=== PATIENT | female | born 1945 | race Two or more races ===

== ENCOUNTER 2021-08-19 10:37 | Inpatient (IN) | payer MEDICARE, MEDICAID ==
[~2021-08-19] VITALS: Ht 152.4 cm; Wt 103.0 kg
[2021-08-19] MEDS ORDERED: SODIUM CHLORIDE 0.9% 500 ML IVB ONE (10:45)
[2021-08-19 12:14] LABS: Basophils # (auto) 0 10 ^3/uL (0-0.2); Basophils % (auto) 0.3 % (0.0-2.0); Eosinophils # (auto) 0.3 10 ^3/uL (0-0.8); Hemoglobin 14.2 g/dL (12.2-16.2); Monocytes # (auto) 0.7 10 ^3/uL (0-1.3); White Blood Cell 11.8 10^3/uL (4.4-10.8)
[2021-08-19 12:15] LABS: Eosinophils % (auto) 2.4 % (0.0-7.0); Hematocrit 44.2 % (36.0-46.0); Lymphocytes # (auto) 3.7 10 ^3/uL (0.4-5.4); Lymphocytes % (auto) 30.9 % (10.0-50.0); Mean Corpuscular Hgb Conc. 32.2 g/dL (32.0-36.0); Mean Corpuscular Volume 80.8 fL (80.0-100.0); Monocytes % (auto) 5.9 % (0.0-12.0); Neutrophils # (auto) 7.2 10 ^3/uL (1.6-8.6); Neutrophils % (auto) 60.5 % (37.0-80.0); Nucleated Red Blood Cells % 0.1 %; Red Blood Cells 5.48 10^6/uL (4.0-5.20); Red Cell Distribution Width 15.4 % (11.8-14.3)
[2021-08-19 12:31] LABS: Albumin 2.6 g/dL (3.4-5.0); Calcium 9.4 mg/dL (8.5-10.1)
[2021-08-19 12:34] LABS: Total Protein 6.5 g/dL (6.4-8.2)
[2021-08-19] MEDS ORDERED: NITROGLYCERIN 0.4 MG SL TAB SL PRN (14:00)
[2021-08-19] MEDS ORDERED: cefTRIAXone 1GM/50ML D5W 50 ML IV ONE (14:00)
[2021-08-19] MEDS ORDERED: MORPHINE SULFATE INJECTION 2 MG/ML SYRG IV PRN ×2 (14:00→16:30)
[2021-08-19 14:35] LABS: Urine Bacteria MOD /hpf (None Seen); Urine Blood 2+ /uL (Negative); Urine Mucus FEW (None Seen); Urine Specific Gravity 1.017 (1.001-1.035); Urine WBC 2872 /hpf (0 - 5); Urine WBC Clumps PRESENT /hpf (None Seen)
[2021-08-19] MEDS ORDERED: HYDROcodone-ACET 5/325MG TAB PO ONE (16:30)
[2021-08-19] MEDS ORDERED: HYDROcodone-ACET 5/325MG TAB PO PRN (16:30)
[2021-08-19] MEDS ORDERED: DEXTROSE (50%) 50ML SYRG IV PRN (16:30)
[2021-08-19] MEDS ORDERED: FAMOTIDINE (10MG/ML) 2ML VL IV ONE (16:30)
[2021-08-19] MEDS ORDERED: DOCUSATE SOD 100 MG CAP PO PRN (16:30)
[2021-08-19] MEDS ORDERED: hydrALAZINE HCL 20 MG/ML VL IV PRN (16:30)
[2021-08-19] MEDS ORDERED: ONDANSETRON HCL 4 MG/2 ML VIAL IV PRN (16:30)
[2021-08-19] MEDS ORDERED: IPRATROPIUM BROM 0.5 MG/2.5ML INH SOL NEB ONE (16:30)
[2021-08-19] MEDS ORDERED: LORazepam 0.5 MG TAB PO PRN (16:30)
[2021-08-19] MEDS ORDERED: LACTULOSE 20Gm/30ML SOLN PO PRN (16:30)
[2021-08-19 17:38] LABS: Magnesium 1.7 mg/dL (1.6-2.6)
[2021-08-19 17:40] LABS: Phosphorus 3.6 mg/dL (2.5-4.90)
[2021-08-19] MEDS: ACCU-CHEK COMFORT CURVE STRIP VI SCH ×2 (17:58→22:03)
[2021-08-19] MEDS: InsuLIN REG 1unit/0.01ml Soln (100units/ml) SC SCH ×2 (17:59→22:00)
[2021-08-19 18:58] LABS: INR 1.05 (0.9-1.15); Partial Thromboplastin Time 28.5 sec (23.6-33.0)
[2021-08-19] MEDS: POTASSIUM CHL 20 Meq TABLET PO SCH (22:00)
[2021-08-19] MEDS: ATORVASTATIN 20 MG TAB PO SCH (22:02)
[2021-08-19] MEDS: QUEtiapine FUMARATE 25 MG TAB PO SCH (22:03)
[2021-08-20] MEDS: IPRATROPIUM BROM 0.5 MG/2.5ML INH SOL NEB SCH ×6 (06:00→22:00)
[2021-08-20] MEDS: FUROSEMIDE 20 MG/2 ML VIAL IV SCH ×2 (06:20→18:11)
[2021-08-20] MEDS: ACCU-CHEK COMFORT CURVE STRIP VI SCH ×4 (06:50→22:00)
[2021-08-20] MEDS: InsuLIN REG 1unit/0.01ml Soln (100units/ml) SC SCH ×4 (06:52→22:00)
[2021-08-20 08:13] LABS: Basophils # (auto) 0.1 10 ^3/uL (0-0.2); Basophils % (auto) 0.9 % (0.0-2.0); Eosinophils # (auto) 0.4 10 ^3/uL (0-0.8); Eosinophils % (auto) 3.5 % (0.0-7.0); Hematocrit 47.3 % (36.0-46.0); Hemoglobin 14.8 g/dL (12.2-16.2); Lymphocytes # (auto) 3.2 10 ^3/uL (0.4-5.4); Lymphocytes % (auto) 28.2 % (10.0-50.0); Mean Corpuscular Hemoglobin 25.7 pg (28.0-32.0); Mean Corpuscular Hgb Conc. 31.3 g/dL (32.0-36.0); Mean Corpuscular Volume 82.1 fL (80.0-100.0); Monocytes # (auto) 0.7 10 ^3/uL (0-1.3); Neutrophils % (auto) 61.4 % (37.0-80.0); Nucleated Red Blood Cells % 0.2 %; Red Blood Cells 5.77 10^6/uL (4.0-5.20); Red Cell Distribution Width 16.2 % (11.8-14.3); White Blood Cell 11.4 10^3/uL (4.4-10.8)
[2021-08-20 08:22] LABS: Calcium 10.2 mg/dL (8.5-10.1); Magnesium 1.9 mg/dL (1.6-2.6); Potassium 4.1 mmol/L (3.5-5.1)
[2021-08-20 08:27] LABS: INR 1.06 (0.9-1.15); Partial Thromboplastin Time 28.6 sec (23.6-33.0)
[2021-08-20 08:31] LABS: CRP High Sensitivity 4.01 mg/dL (< 0.3); Phosphorus 3.1 mg/dL (2.5-4.90)
[2021-08-20 08:45] LABS: Bilirubin, Total 0.9 mg/dL (0.2-1.0); Total Protein 7.2 g/dL (6.4-8.2)
[2021-08-20] MEDS ORDERED: cefTRIAXone 1GM/50ML D5W 50 ML IV SCH (09:00)
[2021-08-20] MEDS: levoFLOXacin 500MG 100 ML IV SCH (09:32)
[2021-08-20] MEDS: FLUoxetine HCL 20 MG CAP PO SCH (09:33)
[2021-08-20] MEDS: BENAZEPRIL HCL 10 MG TAB PO SCH (09:33)
[2021-08-20] MEDS ORDERED: METOPROLOL SUCCINATE XL 50 MG TAB PO SCH (10:00)
[2021-08-20] MEDS ORDERED: FAMOTIDINE (10MG/ML) 2ML VL IV SCH (10:00)
[2021-08-20] MEDS ORDERED: ENOXAPARIN SOD 40 MG/0.4 ML SYRINGE SC SCH (10:00)
[2021-08-20] MEDS ORDERED: CLOPIDOGREL BISULFATE 75 MG TAB PO SCH (10:00)
[2021-08-20] MEDS: POTASSIUM CHL 20 Meq TABLET PO SCH ×2 (10:00→22:00)
[2021-08-20] MEDS: HYDROcodone-ACET 5/325MG TAB PO PRN (10:59)
[2021-08-20 11:11] VITALS: BP 144/84
[2021-08-20 11:12] LABS: Alcohol, Urine < 3.0 mg/dL (0-10); Amphetamine Screen, Urine NEGATIVE (NEGATIVE); Barbiturate Scree,Urine NEGATIVE (NEGATIVE); Benzodiazephine Screen, Urine NEGATIVE (NEGATIVE); Cannabinoid Screen, Urine POSITIVE (NEGATIVE); Cocaine Screen, Urine NEGATIVE (NEGATIVE); Opiate Scree,Urine POSITIVE (NEGATIVE); Phencyclidine Screen, Urine NEGATIVE (NEGATIVE)
[2021-08-20 12:45] LABS: BUN/Creatinine Ratio 14.5
[2021-08-20] MEDS: LORazepam 2MG/ML-1ML VIAL IV PRN ×2 (14:11→18:19)
[2021-08-20] MEDS ORDERED: MORP1SOL9 PO (15:03)
[2021-08-20] MEDS ORDERED: GLIP5TAB12 PO (15:03)
[2021-08-20] MEDS ORDERED: BISA10SU45 PR (15:03)
[2021-08-20] MEDS ORDERED: LORA0.5T20 PO (15:03)
[2021-08-20] MEDS ORDERED: ENOXAPARIN SOD 60 MG/0.6 ML SYRINGE SC ONE (16:45)
[2021-08-20] MEDS: QUEtiapine FUMARATE 25 MG TAB PO SCH (22:00)
[2021-08-20] MEDS: ATORVASTATIN 20 MG TAB PO SCH (22:00)
[2021-08-20] MEDS: CARVEDILOL 12.5 MG TAB PO SCH (22:00)
[2021-08-20] MEDS ORDERED: ENOXAPARIN SOD 150 MG/1 ML SYRINGE SC SCH (22:00)
[2021-08-21] MEDS: IPRATROPIUM BROM 0.5 MG/2.5ML INH SOL NEB SCH ×6 (02:00→22:00)
[2021-08-21] MEDS: LORazepam 2MG/ML-1ML VIAL IV PRN ×2 (02:47→08:04)
[2021-08-21] MEDS: ENOXAPARIN SOD 100 MG/1 ML SYRINGE SC SCH ×2 (06:00→17:38)
[2021-08-21] MEDS: FUROSEMIDE 20 MG/2 ML VIAL IV SCH ×2 (06:02→17:50)
[2021-08-21] MEDS: InsuLIN REG 1unit/0.01ml Soln (100units/ml) SC SCH ×4 (07:40→22:11)
[2021-08-21] MEDS: ACCU-CHEK COMFORT CURVE STRIP VI SCH ×4 (07:40→22:01)
[2021-08-21 08:08] LABS: Folate (Folic Acid) 18.06 ng/mL (5.38-24)
[2021-08-21] MEDS: levoFLOXacin 500MG 100 ML IV SCH (09:34)
[2021-08-21] MEDS: BENAZEPRIL HCL 10 MG TAB PO SCH (09:34)
[2021-08-21] MEDS: FLUoxetine HCL 20 MG CAP PO SCH (09:34)
[2021-08-21] MEDS: CARVEDILOL 12.5 MG TAB PO SCH ×2 (09:34→21:59)
[2021-08-21] MEDS: POTASSIUM CHL 20 Meq TABLET PO SCH ×2 (09:34→22:00)
[2021-08-21] MEDS ORDERED: FLUO60TA7 PO (11:34)
[2021-08-21 11:39] VITALS: BP 103/71
[2021-08-21] MEDS: HYDROcodone-ACET 5/325MG TAB PO PRN (19:53)
[2021-08-21 21:00] VITALS: BP 100/58
[2021-08-21] MEDS: QUEtiapine FUMARATE 25 MG TAB PO SCH (22:00)
[2021-08-21] MEDS: ATORVASTATIN 20 MG TAB PO SCH (22:00)
[2021-08-22] MEDS: IPRATROPIUM BROM 0.5 MG/2.5ML INH SOL NEB SCH ×5 (01:58→13:54)
[2021-08-22 05:00] VITALS: BP 112/64
[2021-08-22] MEDS: ENOXAPARIN SOD 100 MG/1 ML SYRINGE SC SCH ×2 (05:29→17:00)
[2021-08-22] MEDS: FUROSEMIDE 20 MG/2 ML VIAL IV SCH ×2 (05:29→17:23)
[2021-08-22] MEDS: ACCU-CHEK COMFORT CURVE STRIP VI SCH ×3 (06:12→16:58)
[2021-08-22] MEDS: InsuLIN REG 1unit/0.01ml Soln (100units/ml) SC SCH ×3 (06:16→17:17)
[2021-08-22 09:00] VITALS: BP 92/47
[2021-08-22] MEDS: CARVEDILOL 12.5 MG TAB PO SCH (10:00)
[2021-08-22] MEDS: BENAZEPRIL HCL 10 MG TAB PO SCH (10:00)
[2021-08-22] MEDS: FLUoxetine HCL 20 MG CAP PO SCH (10:00)
[2021-08-22] MEDS: POTASSIUM CHL 20 Meq TABLET PO SCH (10:00)
[2021-08-22] MEDS: levoFLOXacin 500MG 100 ML IV SCH (10:00)
[2021-08-22 13:00] VITALS: BP 121/75
[2021-08-22] MEDS ORDERED: SUCCINYLCHOLINE CHLORIDE 20 MG/ML 10ML VIAL IV ONE (13:40)
[2021-08-22 17:00] VITALS: BP 121/54
== END 2021-08-22 17:50 | disposition hospice, home (50) | DRG 463 ==
LOC: EDBD 10:37 → ER 10:37 → OVERFLOW 13:53 → CENTRAL 08-21 10:54
PROVIDERS: ADMIT Hospitalist; ATTEND Internal Medicine Pulmonary Disease
DX: N30.00 Acute cystitis without hematuria (principal); G93.41 Metabolic encephalopathy; I50.21 Acute systolic (congestive) heart failure; I82.411 Acute embolism and thrombosis of right femoral vein; I82.431 Acute embolism and thrombosis of right popliteal vein; I11.0 Hypertensive heart disease with heart failure; F03.90 Unspecified dementia, unspecified severity, without behavioral disturbance, psychotic disturbance, mood disturbance, and anxiety; E11.65 Type 2 diabetes mellitus with hyperglycemia; R62.7 Adult failure to thrive; J44.9 Chronic obstructive pulmonary disease, unspecified; I25.10 Atherosclerotic heart disease of native coronary artery without angina pectoris; Z20.822 Contact with and (suspected) exposure to COVID-19; E66.01 Morbid (severe) obesity due to excess calories; E78.5 Hyperlipidemia, unspecified; F12.90 Cannabis use, unspecified, uncomplicated; I44.7 Left bundle-branch block, unspecified; I50.82 Biventricular heart failure; Z51.5 Encounter for palliative care; Z68.41 Body mass index [BMI] 40.0-44.9, adult; I25.2 Old myocardial infarction; Z79.4 Long term (current) use of insulin; Z82.49 Family history of ischemic heart disease and other diseases of the circulatory system; Z86.73 Personal history of transient ischemic attack (TIA), and cerebral infarction without residual deficits; Z83.3 Family history of diabetes mellitus; Z85.09 Personal history of malignant neoplasm of other digestive organs; Z85.42 Personal history of malignant neoplasm of other parts of uterus; Z87.440 Personal history of urinary (tract) infections; Z90.49 Acquired absence of other specified parts of digestive tract; Z90.710 Acquired absence of both cervix and uterus; Z88.6 Allergy status to analgesic agent
CPT/HCPCS: 36415; 70450; 71045; 74176; 80053; 80061; 80307; 81001; 82150; 82607; 82728; 82746; 82962; 83036; 83605; 83615; 83690; 83735; 83880; 84100; 84443; 84484; 85025; 85379; 85610; 85652; 85730; 86141; 87040; 87086; 87088; 87186; 87426; 93005; 93306; 93970; 94640; 95819; 96361; 96365; 96375; G0378; J0330; J0696; J1815; J1956; J3490

== ENCOUNTER 2024-01-19 22:54 | Inpatient (IN) | payer MEDICARE, MEDICAID ==
[~2024-01-19] VITALS: Ht 154.9 cm; Wt 92.5 kg
[~2024-01-19 22:54] MED LIST: BISA10SU45 PR; FLUO60TA7 PO; GLIP5TAB21 PO; LORA-1121 PO; MORP1SOL9 PO
[2024-01-19 23:39] LABS: Basophils # (auto) 0.1 10 ^3/uL (0-0.2); Basophils % (auto) 1.1 % (0.0-2.0); Eosinophils # (auto) 0.2 10 ^3/uL (0-0.8); Eosinophils % (auto) 1.9 % (0.0-7.0); Hematocrit 46.7 % (36.0-46.0); Hemoglobin 15.7 g/dL (12.2-16.2); Lymphocytes # (auto) 4.5 10 ^3/uL (0.4-5.4); Lymphocytes % (auto) 36.8 % (10.0-50.0); Mean Corpuscular Hemoglobin 28.4 pg (28.0-32.0); Mean Corpuscular Hgb Conc. 33.7 g/dL (32.0-36.0); Mean Corpuscular Volume 84.3 fL (80.0-100.0); Monocytes # (auto) 0.6 10 ^3/uL (0-1.3); Monocytes % (auto) 4.8 % (0.0-12.0); Neutrophils # (auto) 6.7 10 ^3/uL (1.6-8.6); Neutrophils % (auto) 55.4 % (37.0-80.0); Nucleated Red Blood Cells % 0.1 %; Red Blood Cells 5.54 10^6/uL (4.0-5.20); Red Cell Distribution Width 13.3 % (11.8-14.3); White Blood Cell 12.2 10^3/uL (4.4-10.8)
[2024-01-19 23:54] LABS: Partial Thromboplastin Time 28.5 SEC (24.5-34.5); Prothrombin Time 10.6 sec (9.3-11.8)
[2024-01-19 23:58] LABS: Alanine Aminotransferase 13 U/L (7-40); Albumin 3.7 g/dL (3.2-4.8); Alkaline Phosphatase 129 U/L (46-116); Anion Gap 6 (5-15); Aspartate Aminotransferase 11 U/L (13-40); BUN/Creatinine Ratio 13.3 (10.0-20.0); Blood Urea Nitrogen 11 mg/dL (9-23); Carbon Dioxide 25 mmol/L (20-30); Chloride 101 mmol/L (98-107); Glucose 386 mg/dL (74-106); Magnesium 1.5 mg/dL (1.6-2.6); Potassium 3.6 mmol/L (3.5-5.1); Sodium 132 mmol/L (136-145)
[2024-01-19 23:59] LABS: Bilirubin, Total 0.8 mg/dL (0.2-1.0); Total Protein 6.8 g/dL (5.7-8.2)
[2024-01-20] VITALS (10 sets, daily range): BP systolic 109–133; BP diastolic 51–71; PULSE 60–74; RESP 12–20; TEMP 97.7; O2SAT 91–98
[2024-01-20] MEDS: ASPirin-EC 325mg tab PO ONE (00:19)
[2024-01-20] MEDS: ENOXAPARIN SOD 150 MG/1 ML SYRINGE SC ONE (00:19)
[2024-01-20] MEDS: LORazepam 0.5 MG TAB PO ONE (01:27)
[2024-01-20 03:07] LABS: Urine Bacteria MANY /hpf (None Seen); Urine Blood 1+ /uL (Negative); Urine Clarity Ex.Turbid (Clear); Urine Color Light-Brown (Yellow); Urine Mucus FEW (None Seen); Urine Protein, UAD TRACE (Negative); Urine Specific Gravity 1.025 (1.001-1.035); Urine Urobilinogen Normal (Negative); Urine WBC 561 /hpf (0 - 5)
[2024-01-20] MEDS ORDERED: NITROGLYCERIN 0.4 MG SL TAB SL PRN (04:15)
[2024-01-20] MEDS ORDERED: DEXTROSE (50%) 50ML SYRG IV PRN (04:15)
[2024-01-20] MEDS ORDERED: ONDANSETRON HCL 4 MG/2 ML VIAL IV PRN (04:15)
[2024-01-20] MEDS ORDERED: MORPHINE SULFATE INJ 2 MG/ml SYRG IV PRN (04:15)
[2024-01-20] MEDS: MAGNESIUM SULFATE 1GM/100ML 100 ML IV SCH (05:08)
[2024-01-20] MEDS: PANTOPRAZOLE 40 MG TAB PO SCH (06:00)
[2024-01-20] MEDS: InsuLIN REG 1unit/0.01ml Soln (100units/ml) SC SCH (06:00)
[2024-01-20] MEDS: ACCU-CHEK COMFORT CURVE STRIP VI SCH (06:00)
[2024-01-20] MEDS: cefTRIAXone 1GM/50ML D5W 50 ML IV SCH (09:40)
[2024-01-20] MEDS: FLUoxetine HCL 20 MG CAP PO SCH (10:25)
[2024-01-20] MEDS: CLOPIDOGREL BISULFATE 75 MG TAB PO SCH (10:25)
[2024-01-20] MEDS: ENOXAPARIN SOD 40 MG/0.4 ML SYRINGE SC SCH (10:25)
[2024-01-20] MEDS: amLODIPine BESYLATE 5 MG TAB PO SCH (10:26)
[2024-01-20] MEDS: FUROSEMIDE 20 MG TAB PO SCH (10:27)
[2024-01-20] MEDS: CARVEDILOL 3.125 MG TAB PO SCH (10:27)
[2024-01-20] MEDS ORDERED: HEPARIN SODIUM (PORCINE) 5000 UNITS/ML 1ML VIAL IV ONE (11:15)
[2024-01-20] MEDS: HEPARIN DRIP/D5W 100UNITS/ML 250 ML IV SCH (12:55)
[2024-01-20 13:19] LABS: Basophils # (auto) 0.1 10 ^3/uL (0-0.2); Basophils % (auto) 0.6 % (0.0-2.0); Eosinophils # (auto) 0.1 10 ^3/uL (0-0.8); Eosinophils % (auto) 0.7 % (0.0-7.0); Hematocrit 50.1 % (36.0-46.0); Hemoglobin 16.6 g/dL (12.2-16.2); Lymphocytes # (auto) 3.6 10 ^3/uL (0.4-5.4); Lymphocytes % (auto) 26.9 % (10.0-50.0); Mean Corpuscular Hemoglobin 28.2 pg (28.0-32.0); Mean Corpuscular Hgb Conc. 33.2 g/dL (32.0-36.0); Monocytes # (auto) 0.7 10 ^3/uL (0-1.3); Monocytes % (auto) 5.1 % (0.0-12.0); Neutrophils % (auto) 66.7 % (37.0-80.0); Nucleated Red Blood Cells % 0.2 %; Red Blood Cells 5.89 10^6/uL (4.0-5.20); Red Cell Distribution Width 13.6 % (11.8-14.3); White Blood Cell 13.5 10^3/uL (4.4-10.8)
[2024-01-20 13:45] LABS: INR 1.05 (0.9-1.15); Prothrombin Time 11.1 sec (9.3-11.8)
[2024-01-20] MEDS: HEPARIN IN NS 1000Units/500mL 1,500 ML ONE (15:14)
[2024-01-20] MEDS: IODIXANOL 320MG/ML 100ML BTL IV ONE (15:15)
[2024-01-20] MEDS: VERAPAMIL 2.5MG/ML INJ 2ML VIAL IV ONE (15:35)
[2024-01-20] MEDS: MIDAZOLAM HCL 2MG/2ML 2ml VIAL (1mg/ml) ONE (15:36)
[2024-01-20] MEDS: ANGIOMAX 250 MG VIAL IV ONE (15:36)
[2024-01-20] MEDS: SODIUM CHL 0.9% 50 ML ONE (15:36)
[2024-01-20] MEDS: fentaNYL CITRATE 100 MCG/2 ML VL ONE (15:36)
[2024-01-20] MEDS: LIDOCAINE 2%HCL (LOCAL ANESTH.) INJ 20ML MDV ONE (15:58)
[2024-01-20] MEDS ORDERED: ATORVASTATIN 20 MG TAB PO SCH (22:00)
[2024-01-20] MEDS: ATORVASTATIN 20 MG TAB PO SCH (22:23)
[2024-01-21] VITALS (8 sets, daily range): BP systolic 105–131; BP diastolic 64–71; PULSE 57–67; RESP 17–22; TEMP 97.8–98.3; O2SAT 91–97
[2024-01-21 06:59] LABS: Basophils # (auto) 0.1 10 ^3/uL (0-0.2); Basophils % (auto) 0.8 % (0.0-2.0); Eosinophils # (auto) 0.2 10 ^3/uL (0-0.8); Eosinophils % (auto) 1.3 % (0.0-7.0); Hematocrit 43.2 % (36.0-46.0); Hemoglobin 14.5 g/dL (12.2-16.2); Lymphocytes # (auto) 4.1 10 ^3/uL (0.4-5.4); Lymphocytes % (auto) 33.6 % (10.0-50.0); Mean Corpuscular Hgb Conc. 33.5 g/dL (32.0-36.0); Mean Corpuscular Volume 83.7 fL (80.0-100.0); Monocytes # (auto) 0.8 10 ^3/uL (0-1.3); Monocytes % (auto) 6.3 % (0.0-12.0); Neutrophils # (auto) 7.1 10 ^3/uL (1.6-8.6); Nucleated Red Blood Cells % 0.2 %; Red Blood Cells 5.16 10^6/uL (4.0-5.20); Red Cell Distribution Width 13.6 % (11.8-14.3); White Blood Cell 12.2 10^3/uL (4.4-10.8)
[2024-01-21 07:15] LABS: Anion Gap 6 (5-15); Carbon Dioxide 26 mmol/L (20-30); Chloride 102 mmol/L (98-107); Potassium 3.8 mmol/L (3.5-5.1); Sodium 134 mmol/L (136-145)
[2024-01-21 07:16] LABS: Calcium 10.1 mg/dL (8.7-10.4)
[2024-01-21 07:21] LABS: BUN/Creatinine Ratio 19.4 (10.0-20.0); Blood Urea Nitrogen 13 mg/dL (9-23); Glucose 189 mg/dL (74-106)
[2024-01-21] MEDS ORDERED: ASPirin 81 mg TAB PO SCH (10:00)
[2024-01-21] MEDS ORDERED: AMLO1TAB23 PO (16:23)
[2024-01-21] MEDS ORDERED: MULT-1018 PO (16:23)
[2024-01-21] MEDS ORDERED: [UNRECOGNIZED DRUG - CODE] PO (16:23)
[2024-01-21] MEDS ORDERED: PANT40T PO (16:23)
[2024-01-21] MEDS ORDERED: CARV3.1240 PO (16:23)
[2024-01-21] MEDS ORDERED: TRAZ-227 PO (16:23)
[2024-01-21] MEDS ORDERED: CALC-606 PO (16:23)
[2024-01-21] MEDS ORDERED: SENN-231 PO (16:23)
[2024-01-21] MEDS ORDERED: ATOR20TA PO (16:23)
[2024-01-21] MEDS ORDERED: CLOP75TA70 PO (16:23)
[2024-01-21] MEDS ORDERED: FLUO-125 PO (16:27)
[2024-01-21] MEDS: MEROPENEM 1GM IVPB 50 ML IV ONE (18:28)
[2024-01-21] MEDS ORDERED: DEXTROSE (50%) 50ML SYRG IV PRN (20:15)
[2024-01-21] MEDS: ACCU-CHEK COMFORT CURVE STRIP VI SCH (22:36)
[2024-01-21] MEDS: INSULIN LANTUS (GLARGINE) 1 /0.01ml (100units/ml) SC SCH (22:40)
[2024-01-21] MEDS: MEROPENEM 1GM IVPB 50 ML IV SCH (23:08)
[2024-01-22] VITALS (8 sets, daily range): BP systolic 102–135; BP diastolic 54–81; PULSE 58–104; RESP 17–20; TEMP 97.4–98.8; O2SAT 93–98
[2024-01-22] MEDS: InsuLIN REG 1unit/0.01ml Soln (100units/ml) SC SCH (00:22)
[2024-01-22 06:15] LABS: Basophils # (auto) 0.1 10 ^3/uL (0-0.2); Basophils % (auto) 1.2 % (0.0-2.0); Eosinophils # (auto) 0.3 10 ^3/uL (0-0.8); Eosinophils % (auto) 2.5 % (0.0-7.0); Hematocrit 40.9 % (36.0-46.0); Hemoglobin 13.9 g/dL (12.2-16.2); Lymphocytes # (auto) 3.8 10 ^3/uL (0.4-5.4); Lymphocytes % (auto) 34.1 % (10.0-50.0); Mean Corpuscular Hemoglobin 28.2 pg (28.0-32.0); Mean Corpuscular Volume 82.9 fL (80.0-100.0); Monocytes # (auto) 0.9 10 ^3/uL (0-1.3); Monocytes % (auto) 7.6 % (0.0-12.0); Neutrophils # (auto) 6.1 10 ^3/uL (1.6-8.6); Neutrophils % (auto) 54.6 % (37.0-80.0); Nucleated Red Blood Cells % 0.3 %; Red Blood Cells 4.94 10^6/uL (4.0-5.20); Red Cell Distribution Width 13.8 % (11.8-14.3); White Blood Cell 11.2 10^3/uL (4.4-10.8)
[2024-01-22 06:38] LABS: Alanine Aminotransferase 31 U/L (7-40); Alkaline Phosphatase 142 U/L (46-116); Anion Gap 6 (5-15); BUN/Creatinine Ratio 27.5 (10.0-20.0); Blood Urea Nitrogen 19 mg/dL (9-23); Calcium 10.2 mg/dL (8.7-10.4); Carbon Dioxide 28 mmol/L (20-30); Chloride 102 mmol/L (98-107); Glucose 169 mg/dL (74-106); Potassium 3.7 mmol/L (3.5-5.1); Sodium 136 mmol/L (136-145)
[2024-01-22 06:39] LABS: Albumin 3.5 g/dL (3.2-4.8); Aspartate Aminotransferase 20 U/L (13-40); Bilirubin, Total 0.8 mg/dL (0.2-1.0); Total Protein 6.3 g/dL (5.7-8.2)
[2024-01-22] MEDS: INSULIN LANTUS (GLARGINE) 1 /0.01ml (100units/ml) SC SCH (15:47)
[2024-01-22] MEDS: DOCUSATE SOD 100 MG CAP PO SCH (21:47)
[2024-01-22] MEDS: ACETAMINOPHEN 325 MG TAB PO PRN (23:15)
[2024-01-23 01:00] VITALS: BP 103/64; PULSE 65; RESP 20; TEMP 97.5; O2SAT 97
[2024-01-23 05:00] VITALS: BP 104/64; PULSE 57; RESP 20; TEMP 97.4; O2SAT 95
[2024-01-23 06:14] LABS: Basophils # (auto) 0.1 10 ^3/uL (0-0.2); Basophils % (auto) 0.8 % (0.0-2.0); Eosinophils # (auto) 0.3 10 ^3/uL (0-0.8); Eosinophils % (auto) 2.3 % (0.0-7.0); Hematocrit 39.9 % (36.0-46.0); Hemoglobin 13.5 g/dL (12.2-16.2); Lymphocytes # (auto) 4.5 10 ^3/uL (0.4-5.4); Lymphocytes % (auto) 41.2 % (10.0-50.0); Mean Corpuscular Hemoglobin 28.4 pg (28.0-32.0); Mean Corpuscular Hgb Conc. 33.8 g/dL (32.0-36.0); Monocytes # (auto) 0.7 10 ^3/uL (0-1.3); Monocytes % (auto) 6.6 % (0.0-12.0); Neutrophils # (auto) 5.4 10 ^3/uL (1.6-8.6); Neutrophils % (auto) 49.1 % (37.0-80.0); Nucleated Red Blood Cells % 0.1 %; Red Blood Cells 4.75 10^6/uL (4.0-5.20); Red Cell Distribution Width 13.6 % (11.8-14.3)
[2024-01-23 06:20] LABS: Anion Gap 6 (5-15); Carbon Dioxide 29 mmol/L (20-30); Chloride 103 mmol/L (98-107); Potassium 3.5 mmol/L (3.5-5.1); Sodium 138 mmol/L (136-145)
[2024-01-23 06:22] LABS: Calcium 10.3 mg/dL (8.7-10.4)
[2024-01-23 06:26] LABS: Blood Urea Nitrogen 18 mg/dL (9-23); Glucose 191 mg/dL (74-106)
[2024-01-23 08:00] VITALS: PULSE 55
[2024-01-23] MEDS ORDERED: ATOR40TA52 PO (08:15)
[2024-01-23 09:00] VITALS: BP 116/67; PULSE 64; RESP 14; TEMP 98.9; O2SAT 98
[2024-01-23] MEDS: cefTRIAXone 1GM/50ML D5W 50 ML IV SCH (09:01)
[2024-01-23] MEDS: ENOXAPARIN SOD 40 MG/0.4 ML SYRINGE SC SCH (09:11)
[2024-01-23 13:00] VITALS: BP 105/55; PULSE 70; RESP 16; TEMP 97.9; O2SAT 98
== END 2024-01-23 16:09 | DRG 321 ==
LOC: ER 22:54 → EDBD 22:54 → TELE 01-20 04:19 → TELE-WESTW 01-20 17:50
PROVIDERS: ADMIT Internal Medicine Pulmonary Disease; ATTEND Anesthesiology
PROC: 027034Z Dilation of Coronary Artery, One Artery with Drug-eluting Intraluminal Device, Percutaneous Approach (ICD-10-PCS; principal; 2024-01-20)
PROC: B211YZZ Fluoroscopy of Multiple Coronary Arteries using Other Contrast (ICD-10-PCS; 2024-01-20)
PROC: 4A023N7 Measurement of Cardiac Sampling and Pressure, Left Heart, Percutaneous Approach (ICD-10-PCS; 2024-01-20)
DX: I21.4 Non-ST elevation (NSTEMI) myocardial infarction (principal); I50.43 Acute on chronic combined systolic (congestive) and diastolic (congestive) heart failure; N39.0 Urinary tract infection, site not specified; I25.10 Atherosclerotic heart disease of native coronary artery without angina pectoris; B96.20 Unspecified Escherichia coli [E. coli] as the cause of diseases classified elsewhere; J44.9 Chronic obstructive pulmonary disease, unspecified; I11.0 Hypertensive heart disease with heart failure; E66.01 Morbid (severe) obesity due to excess calories; I44.7 Left bundle-branch block, unspecified; E78.5 Hyperlipidemia, unspecified; E11.65 Type 2 diabetes mellitus with hyperglycemia; Z74.01 Bed confinement status; I25.2 Old myocardial infarction; Z79.82 Long term (current) use of aspirin; Z79.899 Other long term (current) drug therapy; Z90.49 Acquired absence of other specified parts of digestive tract; Z90.710 Acquired absence of both cervix and uterus; Z88.6 Allergy status to analgesic agent; Z68.38 Body mass index [BMI] 38.0-38.9, adult; Z86.73 Personal history of transient ischemic attack (TIA), and cerebral infarction without residual deficits
CPT/HCPCS: 36415; 47531; 80053; 83735; 83880; 84484; 85025; 85610; 85730; 92941; 93458; 96365; 96366; 96367; 96372; 99291; C7518; 80048; 81001; 82962; 83036; 85379; 87086; 87088; 87186; 93005; 93306; 97162; 99152; G0378; J1815; J2185; J2250; Q9967

== ENCOUNTER 2024-07-16 21:57 | Inpatient (IN) | payer MEDICARE, MEDICAID ==
[~2024-07-16] VITALS: Ht 167.6 cm; Wt 94.4 kg
[~2024-07-16 21:57] MED LIST changes: +AMLO1TAB23 PO; +ATOR40TA52 PO; +CALC-606 PO; +CARV3.1240 PO; +CLOP75TA70 PO; +FLUO-125 PO; -FLUO60TA7 PO; -GLIP5TAB21 PO; -LORA-1121 PO; -MORP1SOL9 PO; +MULT-1018 PO; +PANT40T PO; +SENN-231 PO; +TRAZ-227 PO; +[UNRECOGNIZED DRUG - CODE] PO
[2024-07-16 22:30] LABS: Basophils # (auto) 0.3 10 ^3/uL (0-0.2); Basophils % (auto) 1.1 % (0.0-2.0); Eosinophils # (auto) 0.1 10 ^3/uL (0-0.8); Eosinophils % (auto) 0.4 % (0.0-7.0); Hematocrit 45.1 % (36.0-46.0); Lymphocytes # (auto) 2.9 10 ^3/uL (0.4-5.4); Lymphocytes % (auto) 12.8 % (10.0-50.0); Mean Corpuscular Hemoglobin 27.7 pg (28.0-32.0); Mean Corpuscular Hgb Conc. 33.1 g/dL (32.0-36.0); Mean Corpuscular Volume 83.5 fL (80.0-100.0); Monocytes # (auto) 0.6 10 ^3/uL (0-1.3); Monocytes % (auto) 2.8 % (0.0-12.0); Neutrophils # (auto) 18.7 10 ^3/uL (1.6-8.6); Neutrophils % (auto) 82.9 % (37.0-80.0); Platelet Count (auto) 427 10^3/uL (140-450); Red Blood Cells 5.41 10^6/uL (4.0-5.20); Red Cell Distribution Width 14.4 % (11.8-14.3); White Blood Cell 22.5 10^3/uL (4.4-10.8)
[2024-07-16 22:44] LABS: Alanine Aminotransferase 13 U/L (7-40); Albumin 4.2 g/dL (3.2-4.8); Anion Gap 9 (5-15); Aspartate Aminotransferase 13 U/L (13-40); Bilirubin, Total 0.6 mg/dL (0.2-1.0); Carbon Dioxide 26 mmol/L (20-31); Chloride 103 mmol/L (98-107); Lipase 35 U/L (12-53); Sodium 138 mmol/L (136-145); Total Protein 7.9 g/dL (5.7-8.2)
[2024-07-16 22:48] LABS: Alkaline Phosphatase 147 U/L (46-116); Blood Urea Nitrogen 24 mg/dL (9-23); Glucose 240 mg/dL (74-106)
[2024-07-16 23:27] VITALS: PULSE 77; RESP 15; O2SAT 96
[2024-07-17] VITALS (7 sets, daily range): BP systolic 107–116; BP diastolic 43–60; PULSE 61–71; RESP 14–18; TEMP 97.8–98.6; O2SAT 93–98
[2024-07-17] MEDS: ONDANSETRON HCL 4 MG/2 ML VIAL IV ONE (00:33)
[2024-07-17] MEDS: HYDROMORPHONE HCL 1 MG/ML INJ IV ONE (00:36)
[2024-07-17] MEDS: IOHEXOL 300 MG/ML 100ML BOTTLE IJ ONE (00:37)
--- NOTE | 2024-07-17 01:30 | DVH ---
Exam: CT CT AB PEL WITH IV CON ONLY History: GI bleed COMPARISON: None Technique: Multidetector spiral CT of the abdomen and pelvis was performed from lung bases to pubic s ymphysis. Intravenous contrast was administered during this examination. Portal venous imaging was obtained. Axial, coronal and sagittal multiplanar reformats were performed by the technologist on a separate workstation. Radiation Dose : 1. Abdomen/Pelvis: CTDIvol 24 mGy, DLP 1432 mGy*cm. CONTRAST: Type of contrast: Isovue Contrast injected: 100 ml Findings: Lung Bases: No acute or significant lung base finding. Normal heart size. No pleural or pericardial effusion. Liver: The liver is normal in size. No focal lesions. Normal hepatic vascular enhancement. Gallbladder and Biliary Tree: Gallbladder is surgically absent. Spleen: Unremarkable Pancreas: The pancreas is normal in appearance without focal lesions or abnormal enhancement. Adrenal Glands: Unremarkable Kidneys: No hydronephrosis. 2 mm nonobstructing stone in the midpole of the right kidney. Bladder: Unremarkable Bowel: The stomach is grossly normal in appearance. Small bowel and colon are normal in caliber and d istribution. The appendix is not visualized; however, no secondary findings of acute appendicitis id entified. Ascites: Absent Lymphadenopathy: No mesenteric, retroperitoneal or periportal lymphadenopathy. Abdominal Wall and Mesentery: Unremarkable. Vasculature: The visualized abdominal aorta is normal in size and caliber. Abdominal and pelvic vess els demonstrate normal enhancement. Pelvic Organs: Unremarkable Musculoskeletal: No aggressive focal bony lesions, acute fractures or dislocation. IMPRESSION: 1. No acute abdominal or pelvic finding. Radiation optimization: All CT scans at this facility use at least one of these dose optimization dank hniques: automated exposure control mA and/or kV adjustment per patient size (includes targeted exam s where dose is matched to clinical indication) or iterative reconstruction.
[2024-07-17 02:12] LABS: Urine Bacteria None Seen /hpf (None Seen)
[2024-07-17 02:20] LABS: Urine Blood 2+ /uL (Negative); Urine Budding Yeast OCCASIONAL /hpf (None Seen); Urine Clarity Ex.Turbid (Clear); Urine Color Light-Brown (Yellow); Urine Protein, UAD 1+ (Negative); Urine Squamous Epithelial Cell FEW /hpf (<5); Urine Urobilinogen Normal (Negative); Urine WBC 1098 /hpf (0 - 5); Urine WBC Clumps PRESENT /hpf (None Seen)
--- NOTE | 2024-07-17 02:35 | ED.PDOC ---
GI ASSESSMENT HPI Comments This patient is a pleasant but morbidly obese 78-year-old female who arrives to the ED today from [facility] for evaluation of abdominal and back pain concerns for the past five days. Patient states that she has had belly pain that she believes his radiating towards her back. Patient has a history of dementia and memory loss. 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 Patient states intermittent nausea but no fever. Patient states she had had an event of coffee-ground emesis. Patient was mildly hypertensive and satting at 92% on room air at arrival. 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 Allergies: Coded Allergies: Aspirin (Verified Allergy, Mild, 08/19/21) Home Meds Active Scripts Atorvastatin Calcium (ATORVASTATIN CALCIUM) 40 Mg Tab, 1 TAB PO QPM, #90 TAB 3 Refills Prov:MILLA DELGADO MD 01/23/24 Reported Medications Fluoxetine Hcl (Fluoxetine Hcl) 20 Mg Cap, 1 TAB PO QAM 01/21/24 Sennosides-Docusate Sodium (Stimulant Laxative Plus S 8.6-50 mg) 1 Tab Tab, 2 TAB PO DAILY 01/21/24 Ferrous Sulfate (True Ferrous Sulfate) 324 Mg Tab, 1 TAB PO DAILY 01/21/24 Calcium Carbonate-Cholecalcife (Ultra Calcium + Vitamin D 600-10 mg-Mcg) 1 Tab Tab, 1 TAB PO DAILY 01/21/24 Multiple Vitamin (Multivitamins) Tab, 1 TAB PO DAILY 01/21/24 Clopidogrel Bisulfate (CLOPIDOGREL) 75 Mg Tab, 1 TAB PO DAILY 01/21/24 Pantoprazole Sodium Sesquihydr (Pantoprazole Sodium) 40 Mg Tab, 1 TAB PO DAILY 01/21/24 Amlodipine Besylate (Amlodipine Besylate) 10 Mg Tab, 1 TAB PO DAILY 01/21/24 Carvedilol (Carvedilol) 3.125 Mg Tab, 1 TAB PO BID 01/21/24 Trazodone Hcl (Trazodone Hcl) 50 Mg Tab, 1 TAB PO DAILY 01/21/24 Bisacodyl (Dulcolax) 10 Mg Sup, 1 SUPP TN DAILYPRN PRN for constipation 08/20/21 Information Source: Patient, Emergency Med Personnel Mode of Arrival: EMS Timing: Days Duration: Since onset Prehospital treatment: None Quality: Aching, Cramping, Sharp Vomitus: None Severity: Moderate Recent: None Recent Hx of: None Pain Location: Diffuse, Periumbilical Associated sign and symptoms: Nausea, Abdominal Pain Past Medical History PAST MEDICAL HISTORY: Cancer, CHF, COPD, CVA, DM, HTN, [place] Surgical History: Cholecystectomy, Hysterectomy, Tonsillectomy 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 Family History Family History: Reviewed,noncontributory to illness Social History Smoker: Non-Smoker Alcohol: Denies ETOH Use Drugs: Denies Drug Use Lives In: Home Constitutional: reports: weakness; denies: chills, diaphoresis, fatigue, fever, malaise, sweats, others EENTM: denies: blurred vision, double vision, ear bleeding, ear discharge, ear drainage, ear pain, ear ringing, eye pain, eye redness, hearing loss, mouth pain, mouth swelling, nasal discharge, nose bleeding, nose congestion, nose pain, photophobia, tearing, throat pain, throat swelling, voice changes, others Respiratory: denies: cough, hemoptysis, orthopnea, SOB at rest, shortness of breath, SOB with excertion, stridor, wheezing, others Cardiovascular: denies: chest pain, dizzy spells, diaphoresis, Dyspnea on exertion, edema, irregular heart beat, left arm pain, lightheadedness, palpitations, PND, syncope, others Gastrointestinal: reports: abdominal pain, nausea, vomiting, others (Coffee- ground emesis); denies: abdomen distended, blood streaked bowels, constipated, diarrhea, dysphagia, difficulty swallowing, hematemesis, melena, poor appetite, poor fluid intake, rectal bleeding, rectal pain Genitourinary: denies: abnormal vagina bleeding, burning, dyspareunia, dysuria, flank pain, frequency, hematuria, incontinence, pain, , vagina discharge, urgency, others Neurological: denies: dizziness, fainting, headache, left sided numbness, left sided weakness, numbness, paresthesia, pre-existing deficit, right sided numbness, right sided weakness, seizure, speech problems, tingling, tremors, weakness, others Musculoskeletal: denies: back pain, gout, joint pain, joint swelling, muscle pain, muscle stiffness, neck pain, others Integumetry: denies: bruises, change in color, change in hair/nails, dryness, laceration, lesions, lumps, rash, wounds, others Allergic/Immunocompromised: denies: Difficulty Healing, Frequent Infections, Hives, Itching, others Hematologic/Lymphatic: denies: anemia, blood clots, easy bleeding, easy bruising, swollen glands, others Endocrine: denies: excessive hunger, excessive sweating, excessive thirst, excessive urination, flushing, intolerance to cold, intolerance to heat, unexplained weight gain, unexplained weight loss, others Psychiatric: denies: anxiety, bipolar disorder, depression, hopeless, panic disorder, schizophrenia, sleepless, suicidal, others Physical Exam General Appearance: Moderate Distress (Patient appears to be in moderate distress due to pain concerns. Patient appears to be in poor overall health.), Obese HEENT: Normal ENT Inspection, Pharynx Normal, TMs Normal Neck: Full Range of Motion, Non-Tender, Normal, Normal Inspection Respiratory: Chest Non-Tender, Lungs Clear, No Accessory Muscle Use, No Respiratory Distress, Normal Breath Sounds Cardiovascular: No Edema, No JVD, No Murmur, No Gallop, Normal Peripheral Pulses, Regular Rate/Rhythm Breast Exam: Deferred Gastrointestinal: No Pulsatile Mass, Normal Bowel Sounds, Soft, Other (Diffuse bilateral periumbilical tenderness to palpation throughout. Difficult to assess due to body habitus. No signs of trauma.) Genitalia: Deferred Pelvic: Deferred Rectal: Deferred Extremities: No calf tenderness, Normal capillary refill Neurologic: Alert Cerebellar Function: NOT DONE Reflexes: NOT DONE Skin: Dry, Normal Color, Warm Lymphatic: No Adenopathy Was a procedure done? Was a procedure done?: No GI differential Dx Differential Diagnosis: Bowel Obstruction, Cholangitis, Cholecystitis, Constipation, Diverticular disease, Gastritis/PUD, Gastroenteritis, GI hemorrhage, Ischemic Bowel, Pancreatitis, UTI X-Ray, Labs, Meds, VS Vital Signs Date Time Temp Pulse Resp B/P (MAP) Pulse Ox O2 Delivery O2 Flow Rate FiO2 07/17/24 01:30 98.8 80 19 120/45 (70) 96 98.8 07/17/24 01:30 80 19 120/45 07/17/24 00:39 80 07/17/24 00:36 78 17 130/80 07/17/24 00:00 78 07/16/24 23:27 77 15 96 Nasal Cannula* 2 28 07/16/24 23:27 97.8 77 15 157/75 (102) 96 97.8 07/16/24 22:27 97.8 74 16 158/78 (104) 92 Lab Test 07/17/24 01:59 07/16/24 22:10 Range/Units Urine Color Light-brown Yellow Urine Clarity Ex.turbid Clear Urine pH 6.0 5.0-9.0 Urine Specific Dewey 1.030 1.001-1.035 Urine Protein 1+ H Negative Urine Ketones 1+ H Negative Urine Blood 2+ H Negative /uL Urine Nitrite Negative Negative Urine Bilirubin Negative Negative Urine Urobilinogen Normal Negative mg/dL Urine Leukocyte Esterase 3+ Negative /uL Urine RBC 34 0 - 4 /hpf Urine WBC 1098 0 - 5 /hpf Urine WBC Clumps Present None Seen /hpf Urine Squamous Epithelial Cells Few <5 /hpf Urine Bacteria None seen None Seen /hpf Urine Yeast (Budding) Occasional None Seen /hpf Urine Glucose 4+ H Normal mg/dL White Blood Count 22.5 H 4.4-10.8 10^3/uL Red Blood Count 5.41 H 4.0-5.20 10^6/uL Hemoglobin 15.0 12.2-16.2 g/dL Hematocrit 45.1 36.0-46.0 % Mean Corpuscular Volume 83.5 80.0-100.0 fL Mean Corpuscular Hemoglobin 27.7 L 28.0-32.0 pg Mean Corpuscular Hemoglobin Concent 33.1 32.0-36.0 g/dL Red Cell Distribution Width 14.4 H 11.8-14.3 % Platelet Count 427 140-450 10^3/uL Mean Platelet Volume 8.7 6.9-10.8 fL Neutrophils (%) (Auto) 82.9 H 37.0-80.0 % Lymphocytes (%) (Auto) 12.8 10.0-50.0 % Monocytes (%) (Auto) 2.8 0.0-12.0 % Eosinophils (%) (Auto) 0.4 0.0-7.0 % Basophils (%) (Auto) 1.1 0.0-2.0 % Neutrophils # (Auto) 18.7 H 1.6-8.6 10 ^3/uL Lymphocytes # (Auto) 2.9 0.4-5.4 10 ^3/uL Monocytes # (Auto) 0.6 0-1.3 10 ^3/uL Eosinophils # (Auto) 0.1 0-0.8 10 ^3/uL Basophils # (Auto) 0.3 H 0-0.2 10 ^3/uL Nucleated Red Blood Cells 0.0 % Sodium Level 138 136-145 mmol/L Potassium Level 4.0 3.5-5.1 mmol/L Chloride Level 103 98-107 mmol/L Carbon Dioxide Level 26 20-31 mmol/L Anion Gap 9 5-15 Blood Urea Nitrogen 24 H 9-23 mg/dL Creatinine 1.00 0.550-1.02 mg/dL Glomerular Filtration Rate Calc 57 >90 mL/min BUN/Creatinine Ratio 24.0 H 10.0-20.0 Serum Glucose 240 H 74-106 mg/dL Lactic Acid Level 0.8 0.4-2.0 mmol/L Calcium Level 11.0 H 8.7-10.4 mg/dL Total Bilirubin 0.6 0.2-1.0 mg/dL Aspartate Amino Transferase (AST) 13 13-40 U/L Alanine Aminotransferase (ALT) 13 7-40 U/L Alkaline Phosphatase 147 H 46-116 U/L Troponin I High Sensitivity 6 </=34 ng/L B-Type Natriuretic Peptide 65.22 0-100 pg/mL Total Protein 7.9 5.7-8.2 g/dL Albumin 4.2 3.2-4.8 g/dL Lipase 35 12-53 U/L Current Medications Medications (Trade) Dose Ordered Sig/Arvin Route Start Time Stop Time Status Last Admin Hydromorphone HCl (Dilaudid Innjection) 0.5 mg ONCE ONCE IV 07/16/24 22:15 07/16/24 22:16 DC 07/17/24 00:36 Ondansetron HCl (Zofran) 4 mg ONCE ONCE IV 07/17/24 00:15 07/17/24 00:16 DC 07/17/24 00:33 X-Ray, Labs, Meds, VS Comment All studies performed the ED were evaluated by me personally. [place] [id number] +, hyperglycemia and an extensive urinary tract infection. CT of the abdomen and pelvis was unremarkable for any acute GI bleeds that might have been responsible for the coffee-ground emesis event. Patient will be admitted for urosepsis concerns and receive IV antibiotics as well as management of all comorbidities. Time of 1ST Reevaluation: 02:33 Reevaluation 1ST: Improved Consultation: PCP Patient Education/Counseling: Diagnosis, Treatment Family Education/Counseling: Diagnosis, Treatment Departure 1 Departure Time of Disposition: 02:34 Impression: Primary Impression: UTI (urinary tract infection) Additional Impression: Hyperglycemia due to diabetes mellitus Disposition: ADMITTED INPATIENT Condition: Stable Discharged With: Self Critical Care Note Critical Care Time?: No Stability Stability form required: No Heart Score Heart Score: Heart Score Response (Comments) Value History Slightly Suspicious 0 EKG Repolarization Disturb 1 Age >65 2 Risk Factors >3 or Hx ASHD 2 Troponin Normal limit 0 Total 5 LONNIE GALVEZ PAC Jul 17, 2024 02:35
[2024-07-17] MEDS: cefTRIAXone 1GM/50ML D5W 50 ML IV ONE ×2 (03:08→03:38)
[2024-07-17] MEDS ORDERED: DEXTROSE (50%) 50ML SYRG IV PRN (03:30)
[2024-07-17] MEDS ORDERED: ACETAMINOPHEN 325 MG TAB PO PRN (03:30)
[2024-07-17] MEDS ORDERED: hydrALAZINE HCL 20 MG/ML VL IV PRN (03:30)
[2024-07-17] MEDS ORDERED: DOCUSATE SOD 100 MG CAP PO PRN (03:30)
[2024-07-17] MEDS ORDERED: MORPHINE SULFATE INJ 2 MG/ml SYRG IV PRN ×2 (03:30→05:00)
[2024-07-17] MEDS ORDERED: HYDROcodone-ACET 5/325MG TAB PO PRN (03:30)
[2024-07-17] MEDS: SODIUM CHLORIDE 0.9% 1,000 ML IV SCH (04:35)
--- NOTE | 2024-07-17 04:54 | DVHHP2 ---
History of Present Illness Reason for Visit: Acute abdominal pain History of Present Illness The patient is a 78-year-old female with past medical history of cancer, CHF, COPD, CVA, DM, [place], and hypertension who presented to [facility] ED with complaint of acute abdominal pain for a proximally 5 days duration. Patient reports radiating abdominal pain towards her back, associated coffee- ground emesis, was getting worse that prompted this visit. Patient was seen and evaluated in the ED, laboratory data shows WBC 25.5, platelets 427, sodium 138, potassium 4.0, BUN 24, creatinine 1.00, GFR 57, glucose 240, calcium 11.0, BNP 65.22, troponin 6, lipase 35. Abdomen/pelvis CT showed no acute abdominal or pelvic finding. Urinalysis positive for urinary tract infection. Patient was started on IV antibiotic regimen Rocephin, please see medication orders section in the computer. On my assessment, patient denied chest pain, no headache, no dizziness, no diarrhea, no nausea, no vomiting at this moment, no fever, no chills. Patient was admitted for further evaluation and medical management. Past Medical History Cancer, CHF, COPD, CVA, DM, HTN, [place], Dementia Past Surgical History Cholecystectomy, Hysterectomy, Tonsillectomy Family History Reviewed, noncontributory to the management of this case. Past Social History The patient lives at home, denies smoking, alcohol or illicit drugs abuse. Review of Systems Constitutional: Yes: Weakness; No: Fever, Chills, Sweats, Malaise, Other Eyes: No: Pain, Vision change, Conjunctivae inflammation, Eyelid inflammation, Other, Redness ENT: No: Ear pain, Ear discharge, Nose pain, Nose discharge, Nose congestion, Mouth pain, Mouth swelling, Throat pain, Throat swelling, Other Respiratory: No: Cough, Dry, Shortness of breath, SOB with excertion, Wheezing, Hemoptysis, Pleuritic Pain, Sputum, Wheezing, Other Cardiovascular: No: Chest Pain, Palpitations, Orthopnea, Paroxysmal Noc. Dyspnea, Edema, Lt Headedness, Other Gastrointestinal: Nausea, Vomiting (Coffee ground emesis), Abdominal Pain; No: Diarrhea, Constipation, Melena, Hematochezia, Other Genitourinary: No Dysuria, No Frequency, No Incontinence, No Hematuria, No Retention, No Other Musculoskeletal: No: other, neck pain, shoulder pain, arm pain, back pain, hand pain, leg pain, foot pain Skin: No: Rash, Lesions, Jaundice, Bruising, Other Neurological: No: Weakness, Numbness, Incoordination, Change in speech, Confusion, Seizures, Other Allergies: Coded Allergies: Aspirin (Verified Allergy, Mild, 08/19/21) Medications Current Medications Medications Dose Ordered Sig/Arvin Route Start Time Stop Time Status Last Admin Dose Admin Atorvastatin Calcium 20 mg HS PO 07/17/24 22:00 Carvedilol 3.125 mg Q12HR PO 07/17/24 10:00 Hydralazine HCl 10 mg Q6HP PRN IV 07/17/24 03:30 Clopidogrel Bisulfate 75 mg DAILY PO 07/17/24 10:00 Ceftriaxone Sodium 50 ml @ 100 mls/hr DAILY@09 IV 07/18/24 09:00 Diagnostic Test (Pha) 1 strip ACHS 07/17/24 07:00 Insulin Human Regular HS SC 07/17/24 22:00 Insulin Human Regular AC SC 07/17/24 07:00 Dextrose 50 ml UD PRN IV 07/17/24 03:30 Sodium Chloride 1,000 ml @ 60 mls/hr [id number] IV 07/17/24 03:30 07/17/24 04:35 60 MLS/HR Acetaminophen/ Hydrocodone Bitart 1 tab Q4HP PRN PO 07/17/24 03:30 Ondansetron HCl 4 mg Q4HP PRN IV 07/17/24 03:30 Docusate Sodium 100 mg BIDPRN PRN PO 07/17/24 03:30 Acetaminophen 650 mg Q6HP PRN PO 07/17/24 03:30 Morphine Sulfate 2 mg Q4HPRN PRN IV 07/17/24 03:30 Pantoprazole Sodium 40 mg DAILY IV 07/17/24 10:00 Exam Vital Signs Vital Signs Date Time Temp Pulse Resp B/P (MAP) Pulse Ox O2 Delivery O2 Flow Rate FiO2 07/17/24 03:32 98.9 77 17 112/68 (83) 95 98.9 07/16/24 23:27 Nasal Cannula* 2 28 General Appearance: Alert, Oriented X3, Cooperative, No acute distress HEENT: Atraumatic, PERRLA, EOMI, Mucous membr. moist/pink Respiratory: Clear to auscultation, Normal air movement Cardiovascular: Regular rate, Normal S1, Normal S2, No murmurs Abdominal: Normal bowel sounds, Soft, No tenderness, No hepatospenomegaly, No masses Extremities: No clubbing, No cyanosis, No edema, Normal pulses, No tenderness/swelling Skin: No rashes, No breakdown, No significant lesion Neuro: Normal speech, Normal tone, Sensation intact, Cranial nerves 3-12 NL, Reflexes 2+, Other (Generalized weakness) Psych/Mental Status: Mental status NL, Mood NL Labs/Xrays Labs Test 07/17/24 01:59 07/16/24 22:10 Range/Units Urine Color Light-brown Yellow Urine Clarity Ex.turbid Clear Urine pH 6.0 5.0-9.0 Urine Specific Vesper 1.030 1.001-1.035 Urine Protein 1+ H Negative Urine Ketones 1+ H Negative Urine Blood 2+ H Negative /uL Urine Nitrite Negative Negative Urine Bilirubin Negative Negative Urine Urobilinogen Normal Negative mg/dL Urine Leukocyte Esterase 3+ Negative /uL Urine RBC 34 0 - 4 /hpf Urine WBC 1098 0 - 5 /hpf Urine WBC Clumps Present None Seen /hpf Urine Squamous Epithelial Cells Few <5 /hpf Urine Bacteria None seen None Seen /hpf Urine Yeast (Budding) Occasional None Seen /hpf Urine Glucose 4+ H Normal mg/dL White Blood Count 22.5 H 4.4-10.8 10^3/uL Red Blood Count 5.41 H 4.0-5.20 10^6/uL Hemoglobin 15.0 12.2-16.2 g/dL Hematocrit 45.1 36.0-46.0 % Mean Corpuscular Volume 83.5 80.0-100.0 fL Mean Corpuscular Hemoglobin 27.7 L 28.0-32.0 pg Mean Corpuscular Hemoglobin Concent 33.1 32.0-36.0 g/dL Red Cell Distribution Width 14.4 H 11.8-14.3 % Platelet Count 427 140-450 10^3/uL Mean Platelet Volume 8.7 6.9-10.8 fL Neutrophils (%) (Auto) 82.9 H 37.0-80.0 % Lymphocytes (%) (Auto) 12.8 10.0-50.0 % Monocytes (%) (Auto) 2.8 0.0-12.0 % Eosinophils (%) (Auto) 0.4 0.0-7.0 % Basophils (%) (Auto) 1.1 0.0-2.0 % Neutrophils # (Auto) 18.7 H 1.6-8.6 10 ^3/uL Lymphocytes # (Auto) 2.9 0.4-5.4 10 ^3/uL Monocytes # (Auto) 0.6 0-1.3 10 ^3/uL Eosinophils # (Auto) 0.1 0-0.8 10 ^3/uL Basophils # (Auto) 0.3 H 0-0.2 10 ^3/uL Nucleated Red Blood Cells 0.0 % Sodium Level 138 136-145 mmol/L Potassium Level 4.0 3.5-5.1 mmol/L Chloride Level 103 98-107 mmol/L Carbon Dioxide Level 26 20-31 mmol/L Anion Gap 9 5-15 Blood Urea Nitrogen 24 H 9-23 mg/dL Creatinine 1.00 0.550-1.02 mg/dL Glomerular Filtration Rate Calc 57 >90 mL/min BUN/Creatinine Ratio 24.0 H 10.0-20.0 Serum Glucose 240 H 74-106 mg/dL Lactic Acid Level 0.8 0.4-2.0 mmol/L Calcium Level 11.0 H 8.7-10.4 mg/dL Total Bilirubin 0.6 0.2-1.0 mg/dL Aspartate Amino Transferase (AST) 13 13-40 U/L Alanine Aminotransferase (ALT) 13 7-40 U/L Alkaline Phosphatase 147 H 46-116 U/L Troponin I High Sensitivity 6 </=34 ng/L B-Type Natriuretic Peptide 65.22 0-100 pg/mL Total Protein 7.9 5.7-8.2 g/dL Albumin 4.2 3.2-4.8 g/dL Lipase 35 12-53 U/L PATIENT: [facility]Z [facility] [place]: [id number] UNIT: [id number] : 1945 LOC: ER ROOM / BED: / AGE / SEX: 78 / F ADM STATUS: REG ER SERVICE 03 ORDERING PHYSICIAN: LONNIE GALVEZ PAC PROCEDURE(s): ABPLIV - CT AB PEL WITH IV CON ONLY REASON: GI bleed ORDER NUMBER(s): [id number], ACCESSION NUMBER(s): [id number] Exam: CT CT AB PEL WITH IV CON ONLY History: GI bleed COMPARISON: None Technique: Multidetector spiral CT of the abdomen and pelvis was performed from lung bases to pubic symphysis. Intravenous contrast was administered during this examination. Portal venous imaging was obtained. Axial, coronal and sagittal multiplanar reformats were performed by the technologist on a separate workstation. Radiation Dose 1. Abdomen/Pelvis: CTDIvol 24 mGy, DLP 1432 mGy*cm. CONTRAST: Type of contrast: Isovue Contrast injected: 100 ml Findings: Lung Bases: No acute or significant lung base finding. Normal heart size. No pleural or pericardial effusion. Liver: The liver is normal in size. No focal lesions. Normal hepatic vascular enhancement. Gallbladder and Biliary Tree: Gallbladder is surgically absent. Spleen: Unremarkable Pancreas: The pancreas is normal in appearance without focal lesions or abnormal enhancement. Adrenal Glands: Unremarkable Kidneys: No hydronephrosis. 2 mm nonobstructing stone in the midpole of the right kidney. Bladder: Unremarkable Bowel: The stomach is grossly normal in appearance. Small bowel and colon are normal in caliber and distribution. The appendix is not visualized; however, no secondary findings of acute appendicitis identified. Ascites: Absent Lymphadenopathy: No mesenteric, retroperitoneal or periportal lymphadenopathy. Abdominal Wall and Mesentery: Unremarkable. Vasculature: The visualized abdominal aorta is normal in size and caliber. Abdominal and pelvic vessels demonstrate normal enhancement. Pelvic Organs: Unremarkable Musculoskeletal: No aggressive focal bony lesions, acute fractures or dislocation. IMPRESSION: 1. No acute abdominal or pelvic finding. Assessment/Plan Assessment/Plan Acute abdominal pain UTI (urinary tract infection) Generalized weakness Hyperglycemia due to diabetes mellitus Plan 1. Admit to med surge unit 2. Breathing treatment 3. Pain control management 4. IV antibiotic management 5. Management of fluids and electrolytes 6. Consultation for hospitalist 7. Diagnostic test abdomen/pelvis CT 8. DVT prophylaxis-on Plavix 9. Repeat labs CBC, CMP in a.m. 10. Home medication reviewed and reconciled 11. Continue with current medical management 12. Treatment plan discussed with patient and RN. Patient verbalized understanding. Plan discussed with: Patient, Other (RN) My Orders Orders - ZOLTAN AVENDANO DNP Procedure Category Date Status Time Consistent DIET 07/17/24 Transmitted Carb(Ccho)Diabetes Breakfast Atorvastatin (Lipitor) PHA 07/17/24 In Process 22:00 Carvedilol Tablet PHA 07/17/24 In Process (Coreg Tablet) 10:00 Urine Bacterial SAGRARIO 07/17/24 In Process Culture 03:23 Hydralazine Injection PHA 07/17/24 In Process (Apresoline Inject 03:30 Clopidogrel Bisulfate PHA 07/17/24 In Process (Plavix) 10:00 Glucose Blood PHA 07/17/24 In Process (Accu-Chek Comfort 07:00 Insulin R (Human) PHA 07/17/24 In Process (Insulin R) 22:00 Insulin R (Human) PHA 07/17/24 In Process (Insulin R) 07:00 Dextrose 50% Syringe PHA 07/17/24 In Process 03:30 Allergies ORION 07/17/24 In Process 03:23 Code Status CODE 07/17/24 Transmitted 03:23 Sodium Chloride 0.9% PHA 07/17/24 In Process 03:30 Oxygen Per Hour RT 07/17/24 Transmitted 03:23 Hydrocodone-Acet PHA 07/17/24 In Process 5/325mg Tab (Hilmar 03:30 Ondansetron Hcl PHA 07/17/24 In Process (Zofran) 03:30 Docusate Sodium PHA 07/17/24 In Process Capsule (Colace 03:30 Complete Blood Count LAB 07/18/24 Verified 04:00 Comprehensive LAB 07/18/24 Verified Metabolic Panel 04:00 Condition: Serious ORION 07/17/24 In Process 03:23 Acetaminophen Tablet PHA 07/17/24 In Process (Tylenol Tablet) 03:30 Clear Liq Diet DIET 07/17/24 Transmitted Breakfast Bedrest With Bathroom ORION 07/17/24 In Process Privileg 03:23 Morphine Sulfate PHA 07/17/24 In Process Injection 03:30 Sequential ORION 07/17/24 In Process Compression Device Pantoprazole PHA 07/17/24 In Process (Protonix) 10:00 Ceftriaxone 1gm/50ml PHA 07/18/24 In Process D5w (Rocephin) 09:00 Admit ADMIT 07/17/24 Verified 04:51 Nitroglycerin PHA 07/17/24 Verified Sublingual (Ntrostat 05:00 Morphine Sulfate PHA 07/17/24 Verified Injection 05:00 Notify Of Changes ORION 07/17/24 Verified From Base 04:51 Emergency Dysrhythmia ORION 07/17/24 Verified Protocol 04:51 Rhythm Strips Once ORION 07/17/24 Verified Every Shift 04:51 Oxygen By Nasal RT 07/17/24 Verified Cannula 04:51 Problem List: (1) Acute abdominal pain (2) UTI (urinary tract infection) (3) Generalized weakness (4) Hyperglycemia due to diabetes mellitus Date of Service: Jul 17, 2024 Billing Provider: ZOLTAN AVENDANO DNP Common Visit Codes: [id number] INP/OBS CARE (HIGH) ZOLTAN AVENDANO DNP Jul 17, 2024 04:54
[2024-07-17] MEDS ORDERED: NITROGLYCERIN 0.4 MG SL TAB SL PRN (05:00)
[2024-07-17] MEDS: ACCU-CHEK COMFORT CURVE STRIP VI SCH (07:10)
[2024-07-17] MEDS: InsuLIN REG 1unit/0.01ml Soln (100units/ml) SC SCH ×2 (07:11→22:22)
[2024-07-17] MEDS: ONDANSETRON HCL 4 MG/2 ML VIAL IV PRN (10:07)
[2024-07-17] MEDS: PANTOPRAZOLE 40 MG/10 ML VIAL INJ IV SCH (10:07)
[2024-07-17] MEDS: CARVEDILOL 3.125 MG TAB PO SCH (10:08)
[2024-07-17] MEDS: CLOPIDOGREL BISULFATE 75 MG TAB PO SCH (10:08)
[2024-07-17] MEDS: ATORVASTATIN 20 MG TAB PO SCH (22:21)
[2024-07-18] VITALS (7 sets, daily range): BP systolic 112–128; BP diastolic 45–68; PULSE 55–63; RESP 16–21; TEMP 97.5–98.7; O2SAT 92–98
[2024-07-18 06:08] LABS: Basophils # (auto) 0.1 10 ^3/uL (0-0.2); Eosinophils # (auto) 0.1 10 ^3/uL (0-0.8); Mean Corpuscular Hgb Conc. 32.2 g/dL (32.0-36.0)
[2024-07-18 06:10] LABS: Basophils % (auto) 0.5 % (0.0-2.0); Eosinophils % (auto) 0.9 % (0.0-7.0); Hemoglobin 12.3 g/dL (12.2-16.2); Lymphocytes # (auto) 3.9 10 ^3/uL (0.4-5.4); Lymphocytes % (auto) 24.8 % (10.0-50.0); Mean Corpuscular Hemoglobin 26.9 pg (28.0-32.0); Mean Corpuscular Volume 83.5 fL (80.0-100.0); Monocytes % (auto) 6.3 % (0.0-12.0); Neutrophils # (auto) 10.6 10 ^3/uL (1.6-8.6); Neutrophils % (auto) 67.5 % (37.0-80.0); Platelet Count (auto) 349 10^3/uL (140-450); Red Blood Cells 4.56 10^6/uL (4.0-5.20); Red Cell Distribution Width 14.2 % (11.8-14.3); White Blood Cell 15.8 10^3/uL (4.4-10.8)
[2024-07-18 06:28] LABS: Alanine Aminotransferase 29 U/L (7-40); Anion Gap 6 (5-15); Aspartate Aminotransferase 21 U/L (13-40); BUN/Creatinine Ratio 27.3 (10.0-20.0); Blood Urea Nitrogen 21 mg/dL (9-23); Calcium 10.3 mg/dL (8.7-10.4); Carbon Dioxide 28 mmol/L (20-31); Chloride 105 mmol/L (98-107); Sodium 139 mmol/L (136-145)
[2024-07-18 06:29] LABS: Bilirubin, Total 0.3 mg/dL (0.2-1.0); Total Protein 6.2 g/dL (5.7-8.2)
[2024-07-18 06:36] LABS: Alkaline Phosphatase 119 U/L (46-116); Glucose 141 mg/dL (74-106); Potassium 3.4 mmol/L (3.5-5.1)
[2024-07-18 06:52] LABS: Albumin 3.3 g/dL (3.2-4.8)
[2024-07-18] MEDS: cefTRIAXone 1GM/50ML D5W 50 ML IV SCH (08:13)
--- NOTE | 2024-07-18 13:46 | DVHPN2 ---
Subjective The patient is seen and examined at bedside. Complain of tired. The patient also complained of bladder spasm and abdominal pain. Reviewed: Care Plan, H&P, Labs, Medications, Previous Orders, Radiology Changes from previous H/P or p: No Changes Eyes: No Pain, No Vision change, No Conjunctivae inflammation, No Eyelid inflammation, No Other, No Redness ENT: No Ear pain, No Ear discharge, No Nose pain, No Nose discharge, No Nose congestion, No Mouth pain, No Mouth swelling, No Throat pain, No Throat swelling, No Other Cardiovascular: No Chest Pain, No Palpitations, No Orthopnea, No Paroxysmal Noc. Dyspnea, No Edema, No Lt Headedness, No Other Respiratory: No Cough, No Dry, No Shortness of breath, No SOB with excertion, No Wheezing, No Hemoptysis, No Pleuritic Pain, No Sputum, No Other Gastrointestinal: Nausea, Vomiting (Coffee ground emesis), Abdominal Pain; No Diarrhea, No Constipation, No Melena, No Hematochezia, No Other Genitourinary: No Dysuria, No Frequency, No Incontinence, No Hematuria, No Retention, No Other Musculoskeletal: No other, No neck pain, No shoulder pain, No arm pain, No back pain, No hand pain, No leg pain, No foot pain Skin: No Rash, No Lesions, No Jaundice, No Bruising, No Other Objective Vitals Vital Signs Date Time Temp Pulse Resp B/P (MAP) Pulse Ox O2 Delivery O2 Flow Rate FiO2 07/18/24 09:13 62 116/45 07/18/24 09:00 98.7 16 98 98.7 07/18/24 08:00 Nasal Cannula* 2 28 Intake/Output Intake and Output 07/18/24 07:00 Intake Total 945 ml Output Total 1250 ml Balance -305 ml Intake Oral 345 ml IV Total 600 ml Output Urine Total 1250 ml General Appearance: Alert, Cooperative, No acute distress HEENT: Atraumatic, PERRLA, EOMI, Mucous membr. moist/pink Neck: Supple Lungs: Clear to auscultation, Normal air movement Cardiovascular: Regular rate, Normal S1, Normal S2, No murmurs, Gallops, Rubs Abdomen: Normal bowel sounds, Soft, No tenderness Neuro: Cranial nerves 3-12 NL Psych/Mental Status: Mental status NL Medications Current Medications Medications Dose Ordered Sig/Arvin Route Start Time Stop Time Status Last Admin Dose Admin Atorvastatin Calcium 20 mg HS PO 07/17/24 22:00 07/17/24 22:21 20 MG Carvedilol 3.125 mg Q12HR PO 07/17/24 10:00 07/18/24 08:13 3.125 MG Hydralazine HCl 10 mg Q6HP PRN IV 07/17/24 03:30 Clopidogrel Bisulfate 75 mg DAILY PO 07/17/24 10:00 07/18/24 08:11 75 MG Ceftriaxone Sodium 50 ml @ 100 mls/hr DAILY@09 IV 07/18/24 09:00 07/18/24 08:13 100 MLS/HR Diagnostic Test (Pha) 1 strip ACHS 07/17/24 07:00 07/18/24 11:42 1 STRIP Insulin Human Regular HS SC 07/17/24 22:00 07/17/24 22:22 4 UNITS Insulin Human Regular AC SC 07/17/24 07:00 07/18/24 11:30 6 UNITS Dextrose 50 ml UD PRN IV 07/17/24 03:30 Sodium Chloride 1,000 ml @ 60 mls/hr [id number] IV 07/17/24 03:30 07/17/24 22:20 60 MLS/HR Acetaminophen/ Hydrocodone Bitart 1 tab Q4HP PRN PO 07/17/24 03:30 Ondansetron HCl 4 mg Q4HP PRN IV 07/17/24 03:30 07/17/24 10:07 4 MG Docusate Sodium 100 mg BIDPRN PRN PO 07/17/24 03:30 Acetaminophen 650 mg Q6HP PRN PO 07/17/24 03:30 Morphine Sulfate 2 mg Q4HPRN PRN IV 07/17/24 03:30 Pantoprazole Sodium 40 mg DAILY IV 07/17/24 10:00 07/18/24 08:11 40 MG Nitroglycerin 0.4 mg Q5MINP PRN SL 07/17/24 05:00 Morphine Sulfate 2 mg Q30M PRN IV 07/17/24 05:00 Laboratory Results Laboratory Tests 07/18/24 05:10 Chemistry Test 07/18/24 05:10 Albumin 3.3 g/dL (3.2-4.8) Calcium Level 10.3 mg/dL (8.7-10.4) Total Protein 6.2 g/dL (5.7-8.2) LFT Test 07/18/24 05:10 Alanine Aminotransferase (ALT) 29 U/L (7-40) Alkaline Phosphatase 119 U/L (46-116) H Aspartate Amino Transferase (AST) 21 U/L (13-40) Total Bilirubin 0.3 mg/dL (0.2-1.0) Urinalysis Test 07/17/24 01:59 Urine Color Light-brown (Yellow) Urine Clarity Ex.turbid (Clear) Urine pH 6.0 (5.0-9.0) Urine Specific [place] 1.030 (1.001-1.035) Urine Protein 1+ (Negative) H Urine Ketones 1+ (Negative) H Urine Blood 2+ /uL (Negative) H Urine Nitrite Negative (Negative) Urine Bilirubin Negative (Negative) Urine Urobilinogen Normal mg/dL (Negative) Urine Leukocyte Esterase 3+ /uL (Negative) Urine RBC 34 /hpf (0 - 4) Urine WBC 1098 /hpf (0 - 5) Urine WBC Clumps Present /hpf (None Seen) Urine Squamous Epithelial Cells Few /hpf (<5) Urine Bacteria None seen /hpf (None Seen) Urine Yeast (Budding) Occasional /hpf (None Urine Glucose 4+ mg/dL (Normal) H Microbiology Microbiology Date/Time Source Procedure Growth Status 07/17/24 06:45 Blood Blood Culture - Preliminary NO GROWTH AFTER 24 HOURS OF INCUBATION. Resulted 07/17/24 01:59 Voided Urine Urine Culture - Preliminary Resulted Labs and/or images reviewed: Labs reviewed by me Assessment/Plan Assessment/Plan Acute abdominal pain UTI (urinary tract infection) Generalized weakness Hyperglycemia due to diabetes mellitus Continuing current management. We will follow up with urine culture. So far it grow Gram-negative bacteria but the identity is not ready yet Continuing IV antibiotic Rocephin. Continuing sliding scale Insulin. Encouraged the patient to be out of bed and ambulate Plan discussed with: Patient Date of Service: Jul 18, 2024 Billing Provider: BRANT BOURGEOIS MD Common Visit Codes: [id number] INP/OBS CARE(HIGH) BRANT BOURGEOIS MD Jul 18, 2024 13:46
[2024-07-19] VITALS (7 sets, daily range): BP systolic 117–143; BP diastolic 44–67; PULSE 54–62; RESP 17–18; TEMP 97.6–98.2; O2SAT 92–97
[2024-07-19 06:10] LABS: Basophils # (auto) 0.1 10 ^3/uL (0-0.2); Basophils % (auto) 0.8 % (0.0-2.0); Eosinophils # (auto) 0.2 10 ^3/uL (0-0.8); Eosinophils % (auto) 1.4 % (0.0-7.0); Hemoglobin 12.9 g/dL (12.2-16.2); Lymphocytes # (auto) 3.6 10 ^3/uL (0.4-5.4); Lymphocytes % (auto) 28.4 % (10.0-50.0); Mean Corpuscular Hgb Conc. 32.1 g/dL (32.0-36.0); Mean Corpuscular Volume 84.1 fL (80.0-100.0); Monocytes # (auto) 0.9 10 ^3/uL (0-1.3); Monocytes % (auto) 7.1 % (0.0-12.0); Neutrophils # (auto) 7.9 10 ^3/uL (1.6-8.6); Neutrophils % (auto) 62.3 % (37.0-80.0); Nucleated Red Blood Cells % 0.1 %; Platelet Count (auto) 373 10^3/uL (140-450); Red Blood Cells 4.76 10^6/uL (4.0-5.20); Red Cell Distribution Width 14.1 % (11.8-14.3); White Blood Cell 12.6 10^3/uL (4.4-10.8)
[2024-07-19 06:28] LABS: Potassium 3.7 mmol/L (3.5-5.1); Sodium 141 mmol/L (136-145)
[2024-07-19 06:29] LABS: Anion Gap 6 (5-15); Carbon Dioxide 27 mmol/L (20-31)
[2024-07-19 06:30] LABS: Calcium 10.3 mg/dL (8.7-10.4)
[2024-07-19 06:31] LABS: Chloride 108 mmol/L (98-107)
[2024-07-19 06:35] LABS: BUN/Creatinine Ratio 17.6 (10.0-20.0); Blood Urea Nitrogen 12 mg/dL (9-23)
[2024-07-19 06:36] LABS: Glucose 108 mg/dL (74-106)
--- NOTE | 2024-07-19 09:33 | ECG ---
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
--- NOTE | 2024-07-19 11:13 | DVHPN2 ---
Progress Note Date Seen: Jul 19, 2024 Medical Necessity Reason Pt with a Central, PICC or Fol: No Subjective Patient reports: No new complaints Review of Systems: HEENT:Normal, CVS:Normal, RESPIRATORY:Normal, GI:Normal, :Normal, MSK:Normal, NEURO:Normal Objective vital signs Vital Sign Date Time Temp Pulse Resp B/P (MAP) Pulse Ox O2 Delivery O2 Flow Rate FiO2 07/19/24 09:36 54 127/51 07/19/24 05:00 97.6 17 97 97.6 07/18/24 20:00 Nasal Cannula* 2 28 Total Intake and Output 07/18/24 07/18/24 07/19/24 15:00 23:00 07:00 Intake Total 50 ml 1300 ml 1320 ml Output Total 1300 ml 900 ml Balance 50 ml 0 ml 420 ml medications Current Medications Medications Dose Ordered Sig/Arvin Route Start Time Stop Time Status Last Admin Dose Admin Atorvastatin Calcium 20 mg HS PO 07/17/24 22:00 07/18/24 22:13 20 MG Carvedilol 3.125 mg Q12HR PO 07/17/24 10:00 07/18/24 22:14 3.125 MG Hydralazine HCl 10 mg Q6HP PRN IV 07/17/24 03:30 Clopidogrel Bisulfate 75 mg DAILY PO 07/17/24 10:00 07/19/24 09:35 75 MG Ceftriaxone Sodium 50 ml @ 100 mls/hr DAILY@09 IV 07/18/24 09:00 07/19/24 09:35 100 MLS/HR Diagnostic Test (Pha) 1 strip ACHS 07/17/24 07:00 07/19/24 07:00 1 STRIP Insulin Human Regular HS SC 07/17/24 22:00 07/18/24 22:25 2 UNITS Insulin Human Regular AC SC 07/17/24 07:00 07/18/24 11:30 6 UNITS Dextrose 50 ml UD PRN IV 07/17/24 03:30 Sodium Chloride 1,000 ml @ 60 mls/hr [id number] IV 07/17/24 03:30 07/19/24 09:35 60 MLS/HR Acetaminophen/ Hydrocodone Bitart 1 tab Q4HP PRN PO 07/17/24 03:30 Ondansetron HCl 4 mg Q4HP PRN IV 07/17/24 03:30 07/17/24 10:07 4 MG Docusate Sodium 100 mg BIDPRN PRN PO 07/17/24 03:30 Acetaminophen 650 mg Q6HP PRN PO 07/17/24 03:30 Morphine Sulfate 2 mg Q4HPRN PRN IV 07/17/24 03:30 Pantoprazole Sodium 40 mg DAILY IV 07/17/24 10:00 07/19/24 09:34 40 MG Nitroglycerin 0.4 mg Q5MINP PRN SL 07/17/24 05:00 Morphine Sulfate 2 mg Q30M PRN IV 07/17/24 05:00 Examination: GENERAL:Normal, HEENT:Normal, NECK:Normal, LUNGS:Normal, CVS:Normal, ABDOMEN:Normal, MSK:Normal, SKIN:Normal, NEURO:Normal, :Normal laboratory and microbiology Laboratory Tests 07/19/24 05:02 Test 07/19/24 05:02 Range/Units Serum Glucose 108 H 74-106 mg/dL Microbiology Date/Time Source Procedure Growth Status 07/17/24 06:45 Blood Blood Culture - Preliminary NO GROWTH AFTER 48 HOURS OF INCUBATION. Resulted 07/17/24 01:59 Voided Urine Urine Culture - Preliminary Resulted Problem List/Assessment/Plan Problem List/Assessment/Plan #1 sepsis with uti: iv rocephin #2 dm: ssi #3 htn #4 cad s/p stent #5 chronic systolic/diastolic heart failure #6 ?h/o cva #7 obesity #8 ?functional quadriplegia; pt eval advance care planning- full code- time spent 19 mins Plan discussed with: Patient Date of Service: Jul 19, 2024 Billing Provider: CLARE LEMON MD Common Visit Codes: [id number] INP/OBS CARE(HIGH) Secondary Visit Codes: [id number] CARE PLAN 30 MINUTES CLARE LEMON MD Jul 19, 2024 11:13
[2024-07-19] MEDS: ATORVASTATIN 20 MG TAB PO SCH (21:21)
[2024-07-19] MEDS: diphenhdrAMINE HCL 25 MG CAP PO ONE (22:24)
[2024-07-20 05:00] VITALS: BP 144/56; PULSE 56; RESP 17; TEMP 98.2; O2SAT 94
[2024-07-20] MEDS: PANTOPRAZOLE 40 MG TAB PO SCH (05:22)
[2024-07-20 05:56] LABS: Basophils # (auto) 0.2 10 ^3/uL (0-0.2); Basophils % (auto) 1.6 % (0.0-2.0); Eosinophils # (auto) 0.3 10 ^3/uL (0-0.8); Eosinophils % (auto) 3.5 % (0.0-7.0); Hematocrit 42.3 % (36.0-46.0); Hemoglobin 13.9 g/dL (12.2-16.2); Lymphocytes # (auto) 3.7 10 ^3/uL (0.4-5.4); Lymphocytes % (auto) 38.7 % (10.0-50.0); Mean Corpuscular Hemoglobin 27.4 pg (28.0-32.0); Mean Corpuscular Hgb Conc. 32.9 g/dL (32.0-36.0); Mean Corpuscular Volume 83.5 fL (80.0-100.0); Monocytes # (auto) 0.8 10 ^3/uL (0-1.3); Monocytes % (auto) 7.8 % (0.0-12.0); Neutrophils # (auto) 4.6 10 ^3/uL (1.6-8.6); Neutrophils % (auto) 48.4 % (37.0-80.0); Nucleated Red Blood Cells % 0.1 %; Platelet Count (auto) 372 10^3/uL (140-450); Red Blood Cells 5.07 10^6/uL (4.0-5.20); Red Cell Distribution Width 14.2 % (11.8-14.3); White Blood Cell 9.6 10^3/uL (4.4-10.8)
[2024-07-20 09:00] VITALS: BP 122/54; PULSE 64; RESP 18; TEMP 98; O2SAT 95
[2024-07-20] MEDS: ENOXAPARIN SOD 40 MG/0.4 ML SYRINGE SC SCH (09:58)
--- NOTE | 2024-07-20 10:42 | DVHDS2 ---
Discharge Summary Date of Admission Jul 17, 2024 at 04:51 Date of Discharge: Jul 20, 2024 Labs/Diagnostic Data: Laboratory Results Test 07/20/24 05:25 07/20/24 05:07 07/19/24 05:02 07/18/24 05:10 POC Glucose 130 mg/dl (70-106) White Blood Count 9.6 10^3/uL (4.4-10.8) Red Blood Count 5.07 10^6/uL (4.0-5.20) Hemoglobin 13.9 g/dL (12.2-16.2) Hematocrit 42.3 % (36.0-46.0) Mean Corpuscular Volume 83.5 fL (80.0-100.0) Mean Corpuscular Hemoglobin 27.4 pg (28.0-32.0) Mean Corpuscular Hemoglobin Concent 32.9 g/dL (32.0-36.0) Red Cell Distribution Width 14.2 % (11.8-14.3) Platelet Count 372 10^3/uL (140-450) Mean Platelet Volume 8.9 fL (6.9-10.8) Neutrophils (%) (Auto) 48.4 % (37.0-80.0) Lymphocytes (%) (Auto) 38.7 % (10.0-50.0) Monocytes (%) (Auto) 7.8 % (0.0-12.0) Eosinophils (%) (Auto) 3.5 % (0.0-7.0) Basophils (%) (Auto) 1.6 % (0.0-2.0) Neutrophils # (Auto) 4.6 10 ^3/uL (1.6-8.6) Lymphocytes # (Auto) 3.7 10 ^3/uL (0.4-5.4) Monocytes # (Auto) 0.8 10 ^3/uL (0-1.3) Eosinophils # (Auto) 0.3 10 ^3/uL (0-0.8) Basophils # (Auto) 0.2 10 ^3/uL (0-0.2) Nucleated Red Blood Cells 0.1 % Hemoglobin A1c 8.4 % A1C (<5.7) Thyroid Stimulating Hormone (TSH) 4.97 uIU/mL (0.55-4.78) Sodium Level 141 mmol/L (136-145) Potassium Level 3.7 mmol/L (3.5-5.1) Chloride Level 108 mmol/L (98-107) Carbon Dioxide Level 27 mmol/L (20-31) Anion Gap 6 (5-15) Blood Urea Nitrogen 12 mg/dL (9-23) Creatinine 0.68 mg/dL (0.550-1.02) Glomerular Filtration Rate Calc 89 mL/min (>90) BUN/Creatinine Ratio 17.6 (10.0-20.0) Serum Glucose 108 mg/dL (74-106) Calcium Level 10.3 mg/dL (8.7-10.4) Total Bilirubin 0.3 mg/dL (0.2-1.0) Aspartate Amino Transferase (AST) 21 U/L (13-40) Alanine Aminotransferase (ALT) 29 U/L (7-40) Alkaline Phosphatase 119 U/L (46-116) Total Protein 6.2 g/dL (5.7-8.2) Albumin 3.3 g/dL (3.2-4.8) Test 07/17/24 01:59 07/16/24 22:10 Urine Color Light-brown (Yellow) Urine Clarity Ex.turbid (Clear) Urine pH 6.0 (5.0-9.0) Urine Specific [place] 1.030 (1.001-1.035) Urine Protein 1+ (Negative) Urine Ketones 1+ (Negative) Urine Blood 2+ /uL (Negative) Urine Nitrite Negative (Negative) Urine Bilirubin Negative (Negative) Urine Urobilinogen Normal mg/dL (Negative) Urine Leukocyte Esterase 3+ /uL (Negative) Urine RBC 34 /hpf (0 - 4) Urine WBC 1098 /hpf (0 - 5) Urine WBC Clumps Present /hpf (None Seen) Urine Squamous Epithelial Cells Few /hpf (<5) Urine Bacteria None seen /hpf (None Seen) Urine Yeast (Budding) Occasional /hpf (None Urine Glucose 4+ mg/dL (Normal) Lactic Acid Level 0.8 mmol/L (0.4-2.0) Troponin I High Sensitivity 6 ng/L (</=34) B-Type Natriuretic Peptide 65.22 pg/mL (0-100) Lipase 35 U/L (12-53) Other Laboratory Tests 07/20/24 05:07 07/19/24 05:02 Brief Hx & Hospital Course: SEE DICTATED NOTE Condition at Discharge: Fair Final Diagnosis/Problems List SEPSIS Discharge Disposition: [facility] Facility Discharge Instruct/Medications Diet: Cardiac 2g Na,low cholest Activity: No Restrictions, As Tolerated Follow Up/Referral: FU WITH PCP IN 1 WK Medications: PER AUG Discharge Statement: "Patient was advised to return to the ER or call 911 if any headaches, dizziness, shortness of breath, chest pain, abdominal pain, bleeding, fevers, or worsening of medical condition. Patient was counseled about treatment plan, medications, possible side effects, patientverbalized understanding. All questions were answered to the best of my ability. This discharge took greater then 30 minutes in planning, reviewing documentation, counseling the patient, and discussing with other team members." ASSESSMENT ASSESSMENT Assessment SEPSIS Date of Service: Jul 20, 2024 Billing Provider: CLARE LEMON MD Common Visit Codes: [id number]/[id number] DISCH DAY >30min CLARE LEMON MD Jul 20, 2024 10:41
--- NOTE | 2024-07-20 11:57 | DVHDS ---
DATE OF DISCHARGE: 07/20/2024 HISTORY OF PRESENT ILLNESS: The patient is a 78-year-old lady who was admitted with complaints of abdominal pain and has a history of COPD, diabetes, CHF, coronary artery disease and dementia. HOSPITAL COURSE: The patient had elevated white count of 22,000 that improved to 9000 at the time of discharge. The patient's TSH was 4.9. The patient's BNP was 65.2. The patient had evidence of UTI. Her urine cultures are currently growing gram-negative rods. The patient has been on Rocephin during the hospitalization. The patient will now be discharged back to [facility] with medication as per medication reconciliation. She will follow up with ____ at [facility]. FINAL DIAGNOSES: Therefore, * Sepsis with urinary tract infection. * Diabetes mellitus. * Hypertension. * Coronary artery disease, status post stent. * Chronic systolic/diastolic heart failure. * Likely dementia. * History of cerebrovascular accident. * Obesity. * Functional quadriplegia. Time spent in discharge planning and review of plan with the patient, nursing and paperwork was 39 minutes. MD DAMI Soria/LIVE/OSCAR TID: [id number] RECEIPT: [id number]
[2024-07-20 13:00] VITALS: BP 140/53; PULSE 58; RESP 17; TEMP 98; O2SAT 97
== END 2024-07-20 18:08 | DRG 871 ==
LOC: EDBD 21:57 → EDUNIT# 21:57 → ER 21:57 → OVERFLOW 07-17 04:51 → WEST WING 07-17 16:18
PROVIDERS: ADMIT Internal Medicine; ATTEND Internal Medicine
DX: A41.9 Sepsis, unspecified organism (principal); R53.2 Functional quadriplegia; N39.0 Urinary tract infection, site not specified; I50.42 Chronic combined systolic (congestive) and diastolic (congestive) heart failure; E11.65 Type 2 diabetes mellitus with hyperglycemia; E66.01 Morbid (severe) obesity due to excess calories; J44.9 Chronic obstructive pulmonary disease, unspecified; I11.0 Hypertensive heart disease with heart failure; I25.10 Atherosclerotic heart disease of native coronary artery without angina pectoris; F03.90 Unspecified dementia, unspecified severity, without behavioral disturbance, psychotic disturbance, mood disturbance, and anxiety; Z88.6 Allergy status to analgesic agent; Z90.49 Acquired absence of other specified parts of digestive tract; Z95.5 Presence of coronary angioplasty implant and graft; Z90.710 Acquired absence of both cervix and uterus; Z86.73 Personal history of transient ischemic attack (TIA), and cerebral infarction without residual deficits; Z79.4 Long term (current) use of insulin; Z68.33 Body mass index [BMI] 33.0-33.9, adult
CPT/HCPCS: 36415; 80048; 80053; 81001; 82962; 83036; 83605; 83690; 83880; 84443; 84484; 85025; 87040; 87086; 87088; 87186; 93005; 97110; 97163; 97530; G0378; J1815; J2405; J2470

== ENCOUNTER 2024-08-15 09:27 | Inpatient (IN) | payer MEDICARE, MEDICAID ==
[~2024-08-15] VITALS: Ht 172.7 cm; Wt 96.1 kg
--- NOTE | 2024-08-15 10:35 | DVH ---
CLINICAL INFORMATION: 79 years old, Female; altered. TECHNIQUE: Axial imaging was obtained through the brain without contrast. Coronal and sagittal refor matted images were obtained, reviewed, and stored. Images were reviewed in brain and bone windows. A ll CT scans at this medical facility are performed using dose modulation techniques as appropriate to a performed exam including the following: Automated exposure control was utilized; adjustment of the MA and/or KV according to patient size; and use of iterative reconstruction technique. CTDIvol = 53.72 mGy DLP = 970.43 mGy-cm COMPARISON: HEAD WITHOUT CONTRAST on DOS: 08/19/21 FINDINGS: There is no acute intracranial hemorrhage or extraaxial fluid collection. No mass effect o r midline shift. Scattered areas of hypoattenuation are seen in the periventricular and subcortical w oc matter, which are nonspecific but most likely sequelae of small vessel ischemic disease. The jasiel tricles and sulci are within normal limits in size for age. Basal cisterns are patent. The calvar ium is unremarkable. Partial opacification of the sphenoid sinus. IMPRESSION: 1. No CT evidence of acute intracranial abnormality. 2. Nonacute findings as described above
[2024-08-15 10:40] VITALS: PULSE 82; RESP 20; O2SAT 94
--- NOTE | 2024-08-15 10:48 | DVH ---
XY CHEST PORTABLE, HISTORY: sob COMPARISON: XY CHEST PORTABLE on DOS: 01/19/24, CHEST PORTABLE on DOS: 08/19/21 XY CHEST PORTABLE on DOS: 01/19/24, CHEST PORTABLE on DOS: 08/19/21 TECHNICAL DATA: 1 view of the chest was obtained. FINDINGS: Lines and tubes: None Cardiomediastinal silhouette: normal Pulmonary vasculature: normal Lung expansion: normal Lung airspace: normal Lung interstitium: normal Pleura: normal Pneumothorax: no Bones: Unremarkable Other: no IMPRESSION: No acute intrathoracic abnormality.
--- NOTE | 2024-08-15 10:57 | ECG ---
[facility] Test Date: 2024-08-15 Test Time: 09:25:04 Pat Name: SALLY DIAZ Department: ER Room: 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
--- NOTE | 2024-08-15 11:08 | ED.PDOC ---
Altered Mental Status HPI Comments 79F BIBA w/ prior Hx of CVA, and a baseline of A/Ox4 and came from [facility] w/ a c/c of ALOC. EMS report that pt has been altered since this morning. The nurse from [facility] stated that the BS was 254 anjd when EMS checked it was 294. EN rout to the ER the pt has been A&Ox1 w/ a BP of 146/70. PMHx of Cancer, CHF, COPD, DM, HTN, [place] and 3L of O2 at the facility. SHx of Cholecystectomy, Hysterectomy and Tonsillectomy. Denies chills, fever, N/V/D< SOB, CP or other associated symptom's, modifiers, or recent injuries or sick contact at this time. Chief Complaint: ALOC Time Seen by MD: 09:50 Primary Care Provider: ANDREY Reviewed Notes: Nurses Notes, Clinical Lab Clerk Notes, Medications, Allergies Allergies: Coded Allergies: Aspirin (Verified Allergy, Mild, 08/19/21) Home Meds Active Scripts Atorvastatin Calcium (ATORVASTATIN CALCIUM) 40 Mg Tab, 1 TAB PO QPM, #90 TAB 3 Refills Prov:MILLA DELGADO MD 01/23/24 Reported Medications Fluoxetine Hcl (Fluoxetine Hcl) 20 Mg Cap, 1 TAB PO QAM 01/21/24 Sennosides-Docusate Sodium (Stimulant Laxative Plus S 8.6-50 mg) 1 Tab Tab, 2 TAB PO DAILY 01/21/24 Ferrous Sulfate (True Ferrous Sulfate) 324 Mg Tab, 1 TAB PO DAILY 01/21/24 Calcium Carbonate-Cholecalcife (Ultra Calcium + Vitamin D 600-10 mg-Mcg) 1 Tab Tab, 1 TAB PO DAILY 01/21/24 Multiple Vitamin (Multivitamins) Tab, 1 TAB PO DAILY 01/21/24 Clopidogrel Bisulfate (CLOPIDOGREL) 75 Mg Tab, 1 TAB PO DAILY 01/21/24 Pantoprazole Sodium Sesquihydr (Pantoprazole Sodium) 40 Mg Tab, 1 TAB PO DAILY 01/21/24 Amlodipine Besylate (Amlodipine Besylate) 10 Mg Tab, 1 TAB PO DAILY 01/21/24 Carvedilol (Carvedilol) 3.125 Mg Tab, 1 TAB PO BID 01/21/24 Trazodone Hcl (Trazodone Hcl) 50 Mg Tab, 1 TAB PO DAILY 01/21/24 Bisacodyl (Dulcolax) 10 Mg Sup, 1 SUPP [place] DAILYPRN PRN for constipation 08/20/21 Information Source: Emergency Med Personnel Mode of Arrival: EMS Severity: Moderate Timing: Hours Duration: Since onset, Hours Prehospital treatment: None Quality: Decreased Alertness Recent: None History of: CVA Associated Signs and Symptoms: None Past Medical History PAST MEDICAL HISTORY: Cancer, CHF, COPD, CVA, DM, HTN, [place] Past Medical History (Other): 3L of O2 at home Surgical History: Cholecystectomy, Hysterectomy, Tonsillectomy LAB COORDINATOR History: Denies all LAB COORDINATOR Hx Family History Family History: Reviewed,noncontributory to illness, Unknown Social History Smoker: Non-Smoker Alcohol: Denies ETOH Use Drugs: Denies Drug Use Lives In: Long-Term Unable to Obtain due to: Altered Mental Status All Other Systems: Reviewed and Negative Physical Exam General Appearance: Moderate Distress, Normal HEENT: Normal ENT Inspection, Pharynx Normal, TMs Normal Neck: Full Range of Motion, Non-Tender, Normal, Normal Inspection Respiratory: Chest Non-Tender, Lungs Clear, No Accessory Muscle Use, No Respiratory Distress, Normal Breath Sounds Cardiovascular: No Edema, No JVD, No Murmur, No Gallop, Normal Peripheral Pulses, Regular Rate/Rhythm Breast Exam: Deferred Gastrointestinal: No Organomegaly, Non Tender, No Pulsatile Mass, Normal Bowel Sounds, Soft Genitalia: Deferred Pelvic: Deferred Rectal: Deferred Extremities: No calf tenderness, Normal capillary refill, No pedal edema Musculoskeletal : Apperance: Normal Neurologic: Disoriented Cerebellar Function: NOT DONE Reflexes: NOT DONE Skin: Dry, Normal Color, Warm Peripheral Pulses: 3+ Radial (R), 3+ Radial (L) Lymphatic: No Adenopathy Was a procedure done? Was a procedure done?: No Differential Diagnosis (ALOC) Differential Diagnosis: Dehydration, Hypoxemia X-Ray, Labs, Meds, VS Vital Signs Date Time Temp Pulse Resp B/P (MAP) Pulse Ox O2 Delivery O2 Flow Rate FiO2 08/15/24 09:27 98.4 84 16 146/76 (99) 98 08/15/24 09:27 84 Lab Test 08/15/24 11:20 08/15/24 10:50 Range/Units Urine Color Yellow Yellow Urine Clarity Turbid H Clear Urine pH 6.0 5.0-9.0 Urine Specific [place] 1.028 1.001-1.035 Urine Protein 1+ H Negative Urine Ketones 1+ H Negative Urine Blood Negative Negative /uL Urine Nitrite Negative Negative Urine Bilirubin Negative Negative Urine Urobilinogen 2 H Negative mg/dL Urine Leukocyte Esterase 3+ Negative /uL Urine RBC 23 0 - 4 /hpf Urine Microscopic WBC 296 H 0-5 /HPF Urine Squamous Epithelial Cells Few <5 /hpf Urine Bacteria Few H None Seen /hpf Urine Mucus Few None Seen Urine Yeast (Budding) Occasional None Seen /hpf Urine Glucose 4+ H Normal mg/dL White Blood Count 17.0 H 4.4-10.8 10^3/uL Red Blood Count 4.94 4.0-5.20 10^6/uL Hemoglobin 13.6 12.2-16.2 g/dL Hematocrit 41.3 36.0-46.0 % Mean Corpuscular Volume 83.5 80.0-100.0 fL Mean Corpuscular Hemoglobin 27.5 L 28.0-32.0 pg Mean Corpuscular Hemoglobin Concent 32.9 32.0-36.0 g/dL Red Cell Distribution Width 14.9 H 11.8-14.3 % Platelet Count 258 140-450 10^3/uL Mean Platelet Volume 9.6 6.9-10.8 fL Neutrophils (%) (Auto) 92.2 H 37.0-80.0 % Lymphocytes (%) (Auto) 3.8 L 10.0-50.0 % Monocytes (%) (Auto) 3.0 0.0-12.0 % Eosinophils (%) (Auto) 0.0 0.0-7.0 % Basophils (%) (Auto) 1.0 0.0-2.0 % Neutrophils # (Auto) 15.7 H 1.6-8.6 10 ^3/uL Lymphocytes # (Auto) 0.6 0.4-5.4 10 ^3/uL Monocytes # (Auto) 0.5 0-1.3 10 ^3/uL Eosinophils # (Auto) 0 0-0.8 10 ^3/uL Basophils # (Auto) 0.2 0-0.2 10 ^3/uL Nucleated Red Blood Cells 0.0 % Sodium Level 131 L 136-145 mmol/L Potassium Level 4.8 3.5-5.1 mmol/L Chloride Level 99 98-107 mmol/L Carbon Dioxide Level 23 20-31 mmol/L Anion Gap 9 5-15 Blood Urea Nitrogen 19 9-23 mg/dL Creatinine 0.82 0.550-1.02 mg/dL Glomerular Filtration Rate Calc 72 >90 mL/min BUN/Creatinine Ratio 23.2 H 10.0-20.0 Serum Glucose 347 H 74-106 mg/dL Calcium Level 9.3 8.7-10.4 mg/dL Troponin I High Sensitivity 11 </=34 ng/L Plasma/Serum Blood Alcohol < 3.0 <10 mg/dL Patient disoriented. Does answer to name but no other questions. Has been oriented prior to today. Vitals stable. Possible sepsis from urine. WBC elevated. Hemoglobin within normal limits. Blood sugar elevated. Cardiac marker within normal limits. Continue cardiac monitoring. EKG reviewed does not show any acute changes. Time of 1ST Reevaluation: 10:20 Reevaluation 1ST: Unchanged Patient Education/Counseling: Other (Pt is AlOC) Family Education/Counseling: No Family Present Departure 1 Departure Time of Disposition: 11:56 Impression: Primary Impression: Metabolic encephalopathy Additional Impressions: Sepsis, unspecified organism Qualified Codes: A41.9 - Sepsis, unspecified organism Sepsis due to urinary tract infection Uncontrolled diabetes mellitus Qualified Codes: E13.65 - Other specified diabetes mellitus with hyperglycemia Disposition: ADMITTED INPATIENT Admit to: Med Surg Condition: Guarded Critical Care Note Critical Care Time?: Yes (45 min-critical care time only) Critical care comment: Altered Stability Stability form required: No Heart Score Heart Score: Heart Score Response (Comments) Value History Slightly Suspicious 0 EKG Normal 0 Age >65 2 Risk Factors >3 or Hx ASHD 2 Troponin Normal limit 0 Total 4 I personally scribed for CA HARMON MD ([email or web address]) on 08/15/24 at 11:08. Electronically submitted by Sha Hall ([email or web address]). CA HARMON MD Aug 15, 2024 11:08
[2024-08-15 11:26] LABS: Basophils # (auto) 0.2 10 ^3/uL (0-0.2); Chloride 99 mmol/L (98-107); Eosinophils # (auto) 0 10 ^3/uL (0-0.8); Hematocrit 41.3 % (36.0-46.0); Hemoglobin 13.6 g/dL (12.2-16.2); Lymphocytes # (auto) 0.6 10 ^3/uL (0.4-5.4); Lymphocytes % (auto) 3.8 % (10.0-50.0); Mean Corpuscular Hemoglobin 27.5 pg (28.0-32.0); Mean Corpuscular Hgb Conc. 32.9 g/dL (32.0-36.0); Mean Corpuscular Volume 83.5 fL (80.0-100.0); Monocytes # (auto) 0.5 10 ^3/uL (0-1.3); Neutrophils # (auto) 15.7 10 ^3/uL (1.6-8.6); Neutrophils % (auto) 92.2 % (37.0-80.0); Platelet Count (auto) 258 10^3/uL (140-450); Potassium 4.8 mmol/L (3.5-5.1); Red Blood Cells 4.94 10^6/uL (4.0-5.20); Red Cell Distribution Width 14.9 % (11.8-14.3)
[2024-08-15 11:27] LABS: Anion Gap 9 (5-15); Calcium 9.3 mg/dL (8.7-10.4); Carbon Dioxide 23 mmol/L (20-31)
[2024-08-15 11:32] LABS: BUN/Creatinine Ratio 23.2 (10.0-20.0); Blood Urea Nitrogen 19 mg/dL (9-23)
[2024-08-15 11:39] LABS: Glucose 347 mg/dL (74-106); Sodium 131 mmol/L (136-145)
[2024-08-15 11:44] LABS: Urine Bacteria FEW /hpf (None Seen); Urine Blood Negative /uL (Negative); Urine Budding Yeast OCCASIONAL /hpf (None Seen); Urine Clarity Turbid (Clear); Urine Color Yellow (Yellow); Urine Mucus FEW (None Seen); Urine Protein, UAD 1+ (Negative); Urine Specific Gravity 1.028 (1.001-1.035); Urine Squamous Epithelial Cell FEW /hpf (<5); Urine Urobilinogen 2 mg/dL (Negative); Urine WBC 296 /HPF (0-5)
[2024-08-15] MEDS: SODIUM CHLORIDE 0.9% 1,000 ML IV ONE (13:50)
[2024-08-15] MEDS: SULFAMETH-TRIMETH 80/16MG-ML 15 ML in D5W 5% 500 ML IV ONE (14:03)
[2024-08-15] MEDS: InsuLIN REG 1unit/0.01ml Soln (100units/ml) IV ONE (15:21)
[2024-08-15] MEDS ORDERED: DEXTROSE (50%) 50ML SYRG IV PRN (18:30)
[2024-08-15 19:38] VITALS: PULSE 75; RESP 24; O2SAT 96
[2024-08-15] MEDS: ACCU-CHEK COMFORT CURVE STRIP VI SCH (20:26)
[2024-08-15] MEDS: InsuLIN REG 1unit/0.01ml Soln (100units/ml) SC SCH (20:29)
--- NOTE | 2024-08-15 20:55 | DVHHP2 ---
History of Present Illness Reason for Visit: Altered mental state History of Present Illness 79-year-old female presents from [facility] for evaluation of altered mental status. Patient was noted to be progressively more lethargic and sleepy for the past one day. No unilateral weakness or slurred speech noted. Patient is cu rrently lethargic and oriented x1. No further history could be obtained at the moment. Past Medical History Diabetes mellitus, hypertension, mi, COPD, CHF, cancer Past Surgical History Tonsillectomy, hysterectomy, cholecystectomy Family History Noncontributory Smoke: No ALCOHOL: none Drugs: None Lives: [facility] Review of Systems Review of Systems Review of systems are limited due to the patient's altered mental status. Allergies: Coded Allergies: Aspirin (Verified Allergy, Mild, 08/19/21) Medications Current Medications Medications Dose Ordered Sig/Arvin Route Start Time Stop Time Status Last Admin Dose Admin Amlodipine Besylate 10 mg DAILY PO 08/16/24 10:00 Atorvastatin Calcium 40 mg HS PO 08/15/24 22:00 Carvedilol 3.125 mg Q12HR PO 08/15/24 22:00 Clopidogrel Bisulfate 75 mg DAILY PO 08/16/24 10:00 Fluoxetine HCl 20 mg DAILY PO 08/16/24 10:00 Diagnostic Test (Pha) 1 strip IQ4HR 08/15/24 20:00 08/15/24 20:26 1 STRIP Insulin Human Regular IQ4HR SC 08/15/24 20:00 08/15/24 20:29 8 UNITS Dextrose 50 ml UD PRN IV 08/15/24 18:30 Ondansetron HCl 4 mg Q4HP PRN IV 08/15/24 18:30 Enoxaparin Sodium 40 mg DAILY SC 08/16/24 10:00 Acetaminophen 650 mg Q6HP PRN PO 08/15/24 18:30 Exam Vital Signs Vital Signs Date Time Temp Pulse Resp B/P (MAP) Pulse Ox O2 Delivery O2 Flow Rate FiO2 08/15/24 20:00 76 08/15/24 19:30 99.5 19 116/51 (72) 96 99.5 08/15/24 10:40 Nasal Cannula* 2 28 Exam Gen: 79-year-old female in mild distress Skin: Warm, dry, normal color and texture, no rash. HEENT: Normocephalic atraumatic, mucous membranes moist and pink. Neck: Cervical and supraclavicular nodes normal without enlargement, trachea is midline, thyroid gland is normal without masses. Pulmonary: Clear to auscultation and percussion bilaterally. Cardiac: Regular rate and rhythm. No murmur Abdomen: Soft, nontender, nondistended, bowel sounds present all 4 quadrants, no guarding, no rigidity, no organomegaly. Extremities: No cyanosis, clubbing, no edema Neuro: Lethargic Labs/Xrays ORDERING PHYSICIAN: CA HARMON MD PROCEDURE(s): CXRP - CHEST PORTABLE REASON: sob ORDER NUMBER(s): [id number], ACCESSION NUMBER(s): [id number] XY CHEST PORTABLE, HISTORY: sob COMPARISON: XY CHEST PORTABLE on DOS: 01/19/24, CHEST PORTABLE on DOS: 08/19/21 XY CHEST PORTABLE on DOS: 01/19/24, CHEST PORTABLE on DOS: 08/19/21 TECHNICAL DATA: 1 view of the chest was obtained. FINDINGS: Lines and tubes: None Cardiomediastinal silhouette: normal Pulmonary vasculature: normal Lung expansion: normal Lung airspace: normal Lung interstitium: normal Pleura: normal Pneumothorax: no Bones: Unremarkable Other: no IMPRESSION: No acute intrathoracic abnormality. ATED BY: AMADEO GAYTAN MD DICTATED DATE/TIME: 08/15/24 1046 ORDERING PHYSICIAN: CA HARMON MD PROCEDURE(s): HWOCT - HEAD WITHOUT CONTRAST REASON: altered ORDER NUMBER(s): [id number], ACCESSION NUMBER(s): [id number] CLINICAL INFORMATION: 79 years old, Female; altered. TECHNIQUE: Axial imaging was obtained through the brain without contrast. Coronal and sagittal reformatted images were obtained, reviewed, and stored. Images were reviewed in brain and bone windows. All CT scans at this medical facility are performed using dose modulation techniques as appropriate to a performed exam including the following: Automated exposure control was utilized; adjustment of the MA and/or KV according to patient size; and use of iterative reconstruction technique. CTDIvol = 53.72 mGy DLP = 970.43 mGy-cm COMPARISON: HEAD WITHOUT CONTRAST on DOS: 08/19/21 FINDINGS: There is no acute intracranial hemorrhage or extraaxial fluid collection. No mass effect or midline shift. Scattered areas of hypoattenuation are seen in the periventricular and subcortical white matter, which are nonspecific but most likely sequelae of small vessel ischemic disease. The ventricles and sulci are within normal limits in size for age. Basal cisterns are patent. The calvarium is unremarkable. Partial opacification of the sphenoid sinus. IMPRESSION: 1. No CT evidence of acute intracranial abnormality. 2. Nonacute findings as described above Labs Test 08/15/24 20:24 08/15/24 11:20 08/15/24 10:50 Range/Units POC Glucose 304 H 70-106 mg/dl Urine Color Yellow Yellow Urine Clarity Turbid H Clear Urine pH 6.0 5.0-9.0 Urine Specific [place] 1.028 1.001-1.035 Urine Protein 1+ H Negative Urine Ketones 1+ H Negative Urine Blood Negative Negative /uL Urine Nitrite Negative Negative Urine Bilirubin Negative Negative Urine Urobilinogen 2 H Negative mg/dL Urine Leukocyte Esterase 3+ Negative /uL Urine RBC 23 0 - 4 /hpf Urine Microscopic WBC 296 H 0-5 /HPF Urine Squamous Epithelial Cells Few <5 /hpf Urine Bacteria Few H None Seen /hpf Urine Mucus Few None Seen Urine Yeast (Budding) Occasional None Seen /hpf Urine Glucose 4+ H Normal mg/dL White Blood Count 17.0 H 4.4-10.8 10^3/uL Red Blood Count 4.94 4.0-5.20 10^6/uL Hemoglobin 13.6 12.2-16.2 g/dL Hematocrit 41.3 36.0-46.0 % Mean Corpuscular Volume 83.5 80.0-100.0 fL Mean Corpuscular Hemoglobin 27.5 L 28.0-32.0 pg Mean Corpuscular Hemoglobin Concent 32.9 32.0-36.0 g/dL Red Cell Distribution Width 14.9 H 11.8-14.3 % Platelet Count 258 140-450 10^3/uL Mean Platelet Volume 9.6 6.9-10.8 fL Neutrophils (%) (Auto) 92.2 H 37.0-80.0 % Lymphocytes (%) (Auto) 3.8 L 10.0-50.0 % Monocytes (%) (Auto) 3.0 0.0-12.0 % Eosinophils (%) (Auto) 0.0 0.0-7.0 % Basophils (%) (Auto) 1.0 0.0-2.0 % Neutrophils # (Auto) 15.7 H 1.6-8.6 10 ^3/uL Lymphocytes # (Auto) 0.6 0.4-5.4 10 ^3/uL Monocytes # (Auto) 0.5 0-1.3 10 ^3/uL Eosinophils # (Auto) 0 0-0.8 10 ^3/uL Basophils # (Auto) 0.2 0-0.2 10 ^3/uL Nucleated Red Blood Cells 0.0 % Sodium Level 131 L 136-145 mmol/L Potassium Level 4.8 3.5-5.1 mmol/L Chloride Level 99 98-107 mmol/L Carbon Dioxide Level 23 20-31 mmol/L Anion Gap 9 5-15 Blood Urea Nitrogen 19 9-23 mg/dL Creatinine 0.82 0.550-1.02 mg/dL Glomerular Filtration Rate Calc 72 >90 mL/min BUN/Creatinine Ratio 23.2 H 10.0-20.0 Serum Glucose 347 H 74-106 mg/dL Calcium Level 9.3 8.7-10.4 mg/dL Troponin I High Sensitivity 11 </=34 ng/L Plasma/Serum Blood Alcohol < 3.0 <10 mg/dL Assessment/Plan Assessment/Plan Assessment Metabolic encephalopathy Urinary tract infection Leukocytosis Diabetes mellitus Plan Admit the patient to [facility] to the hospitalist Jun[place] Resume home medications Urine bacterial culture pending Continue treatment per orders. Plan discussed with: Patient My Orders Orders - CLARE DAMIAN AGACN Procedure Category Date Status Time Amlodipine Tablet PHA 08/16/24 In Process (Norvasc Tablet) 10:00 Atorvastatin (Lipitor) PHA 08/15/24 In Process 22:00 Carvedilol Tablet PHA 08/15/24 In Process (Coreg Tablet) 22:00 Clopidogrel Bisulfate PHA 08/16/24 In Process (Plavix) 10:00 Fluoxetine Capsule PHA 08/16/24 In Process (Prozac Capsule) 10:00 Blood Culture [place] 08/15/24 In Process 18:30 Basic Metabolic Panel LAB 08/16/24 Verified 04:00 Glucose Blood PHA 08/15/24 In Process (Accu-Chek Comfort 20:00 Insulin R (Human) PHA 08/15/24 In Process (Insulin R) 20:00 Dextrose 50% Syringe PHA 08/15/24 In Process 18:30 Admit ADMIT 08/15/24 Transmitted 18:30 Ondansetron Hcl PHA 08/15/24 In Process (Zofran) 18:30 Enoxaparin Sodium PHA 08/16/24 In Process (Lovenox) 10:00 Complete Blood Count LAB 08/16/24 Verified 04:00 Condition: Stable ORION 08/15/24 In Process 18:30 Acetaminophen Tablet PHA 08/15/24 In Process (Tylenol Tablet) 18:30 Bedrest With Bathroom ORION 08/15/24 In Process Privileg 18:30 Cardiac DIET 08/15/24 Transmitted Diet-2gna,Lofat,Lochol Breakfast Date of Service: Aug 15, 2024 Billing Provider: CLARE DAMIAN Common Visit Codes: [id number] INP/OBS CARE (HIGH) CLARE DAMIAN Aug 15, 2024 20:55
[2024-08-15 21:31] VITALS: BP 129/51; PULSE 75; PULSE 78; RESP 17; TEMP 97.8; O2SAT 97
[2024-08-15] MEDS: ATORVASTATIN 20 MG TAB PO SCH (22:07)
[2024-08-15] MEDS: CARVEDILOL 3.125 MG TAB PO SCH (22:11)
[2024-08-15] MEDS ORDERED: CRAN450T PO (23:03)
[2024-08-15] MEDS ORDERED: INSREGI SC (23:03)
[2024-08-15] MEDS ORDERED: ACET-1080 PO (23:03)
[2024-08-15] MEDS ORDERED: ZINC220T6 PO (23:03)
[2024-08-15] MEDS ORDERED: CALC-239 PO (23:03)
[2024-08-15] MEDS ORDERED: MAGNSUS48 PO (23:03)
[2024-08-15] MEDS ORDERED: [UNRECOGNIZED DRUG - CODE] PO (23:03)
[2024-08-15] MEDS ORDERED: LACT1CAP14 PO (23:03)
[2024-08-15] MEDS ORDERED: DOCU-94 PO (23:03)
[2024-08-15] MEDS ORDERED: HYDR-4902 PO (23:03)
[2024-08-16] VITALS (8 sets, daily range): BP systolic 100–134; BP diastolic 47–59; PULSE 65–78; RESP 16–19; TEMP 97.5–99; O2SAT 94–97
[2024-08-16 07:19] LABS: Anion Gap 6 (5-15); Carbon Dioxide 28 mmol/L (20-31)
[2024-08-16 07:20] LABS: Calcium 9.6 mg/dL (8.7-10.4)
[2024-08-16 07:24] LABS: BUN/Creatinine Ratio 20.5 (10.0-20.0); Blood Urea Nitrogen 18 mg/dL (9-23)
[2024-08-16 07:26] LABS: Chloride 97 mmol/L (98-107); Glucose 149 mg/dL (74-106); Sodium 131 mmol/L (136-145)
[2024-08-16 07:31] LABS: Eosinophils # (auto) 0 10 ^3/uL (0-0.8); Lymphocytes # (auto) 1.4 10 ^3/uL (0.4-5.4); Monocytes # (auto) 0.6 10 ^3/uL (0-1.3)
[2024-08-16 07:34] LABS: Basophils # (auto) 0 10 ^3/uL (0-0.2); Basophils % (auto) 0.4 % (0.0-2.0); Eosinophils % (auto) 0.1 % (0.0-7.0); Hematocrit 41.6 % (36.0-46.0); Hemoglobin 13.2 g/dL (12.2-16.2); Lymphocytes % (auto) 11.8 % (10.0-50.0); Mean Corpuscular Hemoglobin 26.3 pg (28.0-32.0); Mean Corpuscular Hgb Conc. 31.7 g/dL (32.0-36.0); Mean Corpuscular Volume 82.9 fL (80.0-100.0); Monocytes % (auto) 5.1 % (0.0-12.0); Neutrophils # (auto) 9.8 10 ^3/uL (1.6-8.6); Neutrophils % (auto) 82.6 % (37.0-80.0); Nucleated Red Blood Cells % 0.1 %; Platelet Count (auto) 233 10^3/uL (140-450); Red Blood Cells 5.02 10^6/uL (4.0-5.20); White Blood Cell 11.8 10^3/uL (4.4-10.8)
[2024-08-16] MEDS: cefTRIAXone 1GM/50ML D5W 50 ML IV SCH (08:29)
[2024-08-16] MEDS: FLUoxetine HCL 20 MG CAP PO SCH (08:33)
[2024-08-16] MEDS: CLOPIDOGREL BISULFATE 75 MG TAB PO SCH (08:33)
[2024-08-16] MEDS: ACETAMINOPHEN 325 MG TAB PO PRN (08:33)
[2024-08-16] MEDS: amLODIPine BESYLATE 5 MG TAB PO SCH (08:34)
[2024-08-16] MEDS: ENOXAPARIN SOD 40 MG/0.4 ML SYRINGE SC SCH (08:34)
[2024-08-16] MEDS ORDERED: POLYETHYLENE GLYCOL 17 GM PWDR PO ONE (11:00)
[2024-08-16] MEDS ORDERED: LACTULOSE 20Gm/30ML SOLN PO ONE (11:00)
--- NOTE | 2024-08-16 12:45 | DVHPN2 ---
Progress Note Date Seen: Aug 16, 2024 Medical Necessity Reason Pt with a Central, PICC or Fol: Yes The following are medically ne: Weeks Catheter Reason for weeks catheter: Strict I&O Subjective Patient reports: No new complaints Review of Systems: HEENT:Normal, CVS:Normal, RESPIRATORY:Normal, GI:Normal, :Normal, MSK:Normal, NEURO:Normal Objective vital signs Vital Sign Date Time Temp Pulse Resp B/P (MAP) Pulse Ox O2 Delivery O2 Flow Rate FiO2 08/16/24 11:36 99 112/52 08/16/24 08:57 98.0 19 96 98.0 08/16/24 08:00 Room Air* 0 21 Total Intake and Output 08/15/24 08/15/24 08/16/24 15:00 23:00 07:00 Intake Total 320 ml Output Total 350 ml Balance -30 ml medications Current Medications Medications Dose Ordered Sig/Arvin Route Start Time Stop Time Status Last Admin Dose Admin Amlodipine Besylate 10 mg DAILY PO 08/16/24 10:00 08/16/24 08:34 10 MG Atorvastatin Calcium 40 mg HS PO 08/15/24 22:00 08/15/24 22:07 40 MG Carvedilol 3.125 mg Q12HR PO 08/15/24 22:00 08/16/24 08:33 3.125 MG Clopidogrel Bisulfate 75 mg DAILY PO 08/16/24 10:00 08/16/24 08:33 75 MG Fluoxetine HCl 20 mg DAILY PO 08/16/24 10:00 08/16/24 08:33 20 MG Diagnostic Test (Pha) 1 strip IQ4HR 08/15/24 20:00 08/16/24 11:29 1 STRIP Insulin Human Regular IQ4HR SC 08/15/24 20:00 08/16/24 11:33 3 UNITS Dextrose 50 ml UD PRN IV 08/15/24 18:30 Ondansetron HCl 4 mg Q4HP PRN IV 08/15/24 18:30 Enoxaparin Sodium 40 mg DAILY SC 08/16/24 10:00 08/16/24 08:34 40 MG Acetaminophen 650 mg Q6HP PRN PO 08/15/24 18:30 08/16/24 08:33 650 MG Ceftriaxone Sodium 50 ml @ 100 mls/hr DAILY@09 IV 08/16/24 09:00 08/16/24 08:29 100 MLS/HR Lactulose 30 ml BID PO 08/16/24 22:00 UNV Examination: GENERAL:Normal, HEENT:Normal, NECK:Normal, LUNGS:Normal, CVS:Normal, ABDOMEN:Normal, MSK:Normal, SKIN:Normal, NEURO:Normal, NEURO:Abnormal (encephalopathy), :Normal laboratory and microbiology Laboratory Tests 08/16/24 06:44 Test 08/16/24 06:44 Range/Units Serum Glucose 149 H 74-106 mg/dL Microbiology Date/Time Source Procedure Growth Status 08/15/24 11:20 Urine - Weeks Port Urine Culture - Preliminary Resulted Problem List/Assessment/Plan Problem List/Assessment/Plan * Sepsis with urinary tract infection: iv rocephin * Diabetes mellitus: ssi * Hypertension. * Coronary artery disease, status post stent. * Chronic systolic/diastolic heart failure. * Likely dementia. * History of cerebrovascular accident. * Obesity. * Functional quadriplegia. * encephalopathy- metabolic advance care planning- full code- time spent 19mins Plan discussed with: Patient Date of Service: Aug 16, 2024 Billing Provider: CLARE LEMON MD Common Visit Codes: [id number] INP/OBS CARE(HIGH) Secondary Visit Codes: [id number] CARE PLAN 30 MINUTES CLARE LEMON MD Aug 16, 2024 12:45
[2024-08-16] MEDS ORDERED: LACTULOSE 20Gm/30ML SOLN PO SCH (22:00)
[2024-08-17] VITALS (7 sets, daily range): BP systolic 114–142; BP diastolic 50–69; PULSE 60–70; RESP 17–19; TEMP 97.1–98.7; O2SAT 93–98
[2024-08-17 06:06] LABS: Basophils # (auto) 0.1 10 ^3/uL (0-0.2); Basophils % (auto) 0.6 % (0.0-2.0); Eosinophils # (auto) 0.2 10 ^3/uL (0-0.8); Eosinophils % (auto) 1.6 % (0.0-7.0); Hematocrit 39.1 % (36.0-46.0); Hemoglobin 12.7 g/dL (12.2-16.2); Lymphocytes # (auto) 1.8 10 ^3/uL (0.4-5.4); Lymphocytes % (auto) 18.5 % (10.0-50.0); Mean Corpuscular Hemoglobin 26.6 pg (28.0-32.0); Mean Corpuscular Hgb Conc. 32.5 g/dL (32.0-36.0); Mean Corpuscular Volume 81.9 fL (80.0-100.0); Monocytes # (auto) 0.8 10 ^3/uL (0-1.3); Monocytes % (auto) 8.4 % (0.0-12.0); Neutrophils # (auto) 7.1 10 ^3/uL (1.6-8.6); Neutrophils % (auto) 70.9 % (37.0-80.0); Nucleated Red Blood Cells % 0.1 %; Platelet Count (auto) 242 10^3/uL (140-450); Red Blood Cells 4.78 10^6/uL (4.0-5.20); Red Cell Distribution Width 14.9 % (11.8-14.3)
[2024-08-17 06:15] LABS: Alanine Aminotransferase 17 U/L (7-40); Albumin 3.4 g/dL (3.2-4.8); Alkaline Phosphatase 90 U/L (46-116); Anion Gap 7 (5-15); Aspartate Aminotransferase 17 U/L (13-40); BUN/Creatinine Ratio 28.2 (10.0-20.0); Bilirubin, Total 0.4 mg/dL (0.2-1.0); Blood Urea Nitrogen 22 mg/dL (9-23); Calcium 9.7 mg/dL (8.7-10.4); Carbon Dioxide 26 mmol/L (20-31); Chloride 99 mmol/L (98-107); Potassium 4.1 mmol/L (3.5-5.1); Total Protein 5.9 g/dL (5.7-8.2)
[2024-08-17 06:18] LABS: Glucose 136 mg/dL (74-106); Sodium 132 mmol/L (136-145)
--- NOTE | 2024-08-17 11:49 | DVHPN2 ---
Progress Note Date Seen: Aug 17, 2024 Medical Necessity Reason Pt with a Central, PICC or Fol: Yes The following are medically ne: Weeks Catheter Reason for weeks catheter: Strict I&O Subjective Patient reports: No new complaints Review of Systems: HEENT:Normal, CVS:Normal, RESPIRATORY:Normal, GI:Normal, :Normal, MSK:Normal, NEURO:Normal Objective vital signs Vital Sign Date Time Temp Pulse Resp B/P (MAP) Pulse Ox O2 Delivery O2 Flow Rate FiO2 08/17/24 09:00 98.1 60 17 119/60 (79) 98 98.1 08/16/24 20:00 Nasal Cannula* 1 24 Total Intake and Output 08/16/24 08/16/24 08/17/24 15:00 23:00 07:00 Intake Total 50 ml 760 ml 800 ml Output Total 600 ml Balance 50 ml 760 ml 200 ml medications Current Medications Medications Dose Ordered Sig/Arvin Route Start Time Stop Time Status Last Admin Dose Admin Atorvastatin Calcium 40 mg HS PO 08/15/24 22:00 08/16/24 21:10 40 MG Carvedilol 3.125 mg Q12HR PO 08/15/24 22:00 08/16/24 21:11 3.125 MG Clopidogrel Bisulfate 75 mg DAILY PO 08/16/24 10:00 08/17/24 08:21 75 MG Diagnostic Test (Pha) 1 strip IQ4HR 08/15/24 20:00 08/17/24 08:23 1 STRIP Insulin Human Regular IQ4HR SC 08/15/24 20:00 08/17/24 08:24 2 UNITS Dextrose 50 ml UD PRN IV 08/15/24 18:30 Ondansetron HCl 4 mg Q4HP PRN IV 08/15/24 18:30 Enoxaparin Sodium 40 mg DAILY SC 08/16/24 10:00 08/17/24 08:22 40 MG Acetaminophen 650 mg Q6HP PRN PO 08/15/24 18:30 08/17/24 04:11 650 MG Ceftriaxone Sodium 50 ml @ 100 mls/hr DAILY@09 IV 08/16/24 09:00 08/17/24 08:17 100 MLS/HR Lactulose 30 ml BID PO 08/16/24 22:00 UNV Examination: GENERAL:Normal, HEENT:Normal, NECK:Normal, LUNGS:Normal, CVS:Normal, ABDOMEN:Normal, MSK:Normal, SKIN:Normal, NEURO:Normal, :Normal laboratory and microbiology Laboratory Tests 08/17/24 05:07 Test 08/17/24 05:07 Range/Units Serum Glucose 136 H 74-106 mg/dL Microbiology Date/Time Source Procedure Growth Status 08/15/24 22:45 Nose MRSA Screen - Final Complete 08/15/24 18:40 Blood Blood Culture - Preliminary NO GROWTH AFTER 24 HOURS OF INCUBATION. Resulted 08/15/24 11:20 Urine - Weeks Port Urine Culture - Preliminary Resulted Problem List/Assessment/Plan Problem List/Assessment/Plan * Sepsis with urinary tract infection: iv rocephin * Diabetes mellitus: ssi * Hypertension. * Coronary artery disease, status post stent. * Chronic systolic/diastolic heart failure. * Likely dementia. * History of cerebrovascular accident. * Obesity. * Functional quadriplegia. * encephalopathy- metabolic * acute resp failure advance care planning- full code- time spent 19mins Plan discussed with: Patient My Orders My Orders Orders - CLARE LEMON MD Procedure Category Date Status Time Pt Request For Service PT 08/16/24 Logged 12:40 Cardiac DIET 08/16/24 Transmitted Diet-2gna,Lofat,Lochol Lunch Date of Service: Aug 17, 2024 Billing Provider: CLARE LEMON MD Common Visit Codes: [id number] INP/OBS CARE(HIGH) Secondary Visit Codes: [id number] CARE PLAN 30 MINUTES CLARE LEMON MD Aug 17, 2024 11:49
[2024-08-17] MEDS ORDERED: DEXTROSE (50%) 50ML SYRG IV PRN (12:00)
[2024-08-17] MEDS: ACCU-CHEK COMFORT CURVE STRIP VI SCH (16:30)
[2024-08-17] MEDS: InsuLIN REG 1unit/0.01ml Soln (100units/ml) SC SCH (16:31)
[2024-08-17] MEDS: MELATONIN 5 MG TAB PO ONE (23:35)
[2024-08-18] VITALS (8 sets, daily range): BP systolic 114–146; BP diastolic 50–62; PULSE 62–70; RESP 17–18; TEMP 97.4–98.8; O2SAT 94–97
[2024-08-18] MEDS: ONDANSETRON HCL 4 MG/2 ML VIAL IV PRN (02:24)
[2024-08-18 06:30] LABS: Anion Gap 7 (5-15); Basophils # (auto) 0.1 10 ^3/uL (0-0.2); Carbon Dioxide 29 mmol/L (20-31); Eosinophils # (auto) 0.2 10 ^3/uL (0-0.8); Hemoglobin 13.1 g/dL (12.2-16.2); Neutrophils # (auto) 5.5 10 ^3/uL (1.6-8.6); Nucleated Red Blood Cells % 0.1 %; Potassium 4.5 mmol/L (3.5-5.1); White Blood Cell 8.6 10^3/uL (4.4-10.8)
[2024-08-18 06:33] LABS: Basophils % (auto) 0.7 % (0.0-2.0); Hematocrit 40.6 % (36.0-46.0); Lymphocytes % (auto) 23.4 % (10.0-50.0); Mean Corpuscular Hemoglobin 26.5 pg (28.0-32.0); Mean Corpuscular Hgb Conc. 32.4 g/dL (32.0-36.0); Mean Corpuscular Volume 81.9 fL (80.0-100.0); Monocytes # (auto) 0.8 10 ^3/uL (0-1.3); Monocytes % (auto) 9.2 % (0.0-12.0); Neutrophils % (auto) 64.7 % (37.0-80.0); Platelet Count (auto) 256 10^3/uL (140-450); Red Blood Cells 4.95 10^6/uL (4.0-5.20)
[2024-08-18 06:37] LABS: Blood Urea Nitrogen 22 mg/dL (9-23)
[2024-08-18 06:38] LABS: Chloride 98 mmol/L (98-107); Glucose 248 mg/dL (74-106); Sodium 134 mmol/L (136-145)
--- NOTE | 2024-08-18 12:20 | DVHPN2 ---
Progress Note Date Seen: Aug 18, 2024 Medical Necessity Reason Pt with a Central, PICC or Fol: Yes The following are medically ne: Weeks Catheter Reason for weeks catheter: Strict I&O Subjective Patient reports: No new complaints Review of Systems: HEENT:Normal, CVS:Normal, RESPIRATORY:Normal, GI:Normal, :Normal, MSK:Normal, NEURO:Normal Objective vital signs Vital Sign Date Time Temp Pulse Resp B/P (MAP) Pulse Ox O2 Delivery O2 Flow Rate FiO2 08/18/24 09:00 97.9 70 18 134/61 (85) 97 97.9 08/18/24 08:00 Nasal Cannula* 1 24 Total Intake and Output 08/17/24 08/17/24 08/18/24 15:00 23:00 07:00 Intake Total 50 ml 0 ml 600 ml Output Total 1500 ml Balance 50 ml 0 ml -900 ml medications Current Medications Medications Dose Ordered Sig/Arvin Route Start Time Stop Time Status Last Admin Dose Admin Atorvastatin Calcium 40 mg HS PO 08/15/24 22:00 08/17/24 21:27 40 MG Carvedilol 3.125 mg Q12HR PO 08/15/24 22:00 08/18/24 08:48 3.125 MG Clopidogrel Bisulfate 75 mg DAILY PO 08/16/24 10:00 08/18/24 08:49 75 MG Ondansetron HCl 4 mg Q4HP PRN IV 08/15/24 18:30 08/18/24 08:50 4 MG Enoxaparin Sodium 40 mg DAILY SC 08/16/24 10:00 08/18/24 08:49 40 MG Acetaminophen 650 mg Q6HP PRN PO 08/15/24 18:30 08/18/24 04:01 650 MG Ceftriaxone Sodium 50 ml @ 100 mls/hr DAILY@09 IV 08/16/24 09:00 08/18/24 08:45 100 MLS/HR Lactulose 30 ml BID PO 08/16/24 22:00 UNV Diagnostic Test (Pha) 1 strip ACHS 08/17/24 17:00 08/18/24 11:51 1 STRIP Insulin Human Regular ACHS SC 08/17/24 17:00 08/18/24 11:53 6 UNITS Dextrose 50 ml UD PRN IV 08/17/24 12:00 Examination: GENERAL:Normal, HEENT:Normal, NECK:Normal, LUNGS:Normal, CVS:Normal, ABDOMEN:Normal, MSK:Normal, SKIN:Normal, NEURO:Normal, :Normal laboratory and microbiology Laboratory Tests 08/18/24 05:19 Test 08/18/24 05:19 Range/Units Serum Glucose 248 H 74-106 mg/dL Microbiology Date/Time Source Procedure Growth Status 08/15/24 22:45 Nose MRSA Screen - Final Complete 08/15/24 18:40 Blood Blood Culture - Preliminary NO GROWTH AFTER 48 HOURS OF INCUBATION. Resulted 08/15/24 11:20 Urine - Weeks Port Urine Culture - Final Complete Problem List/Assessment/Plan Problem List/Assessment/Plan * Sepsis with urinary tract infection: iv rocephin * Diabetes mellitus: ssi * Hypertension. * Coronary artery disease, status post stent. * Chronic systolic/diastolic heart failure. * Likely dementia. * History of cerebrovascular accident. * Obesity. * Functional quadriplegia. * encephalopathy- metabolic * acute resp failure advance care planning- full code- time spent 19mins Plan discussed with: Patient My Orders My Orders Orders - CLARE LEMON MD Procedure Category Date Status Time * Circuit Design Engineer CONS 08/18/24 Verified Consult Date of Service: Aug 18, 2024 Billing Provider: CLARE LEMON MD Common Visit Codes: [id number] INP/OBS CARE(HIGH) CLARE LEMON MD Aug 18, 2024 12:20
[2024-08-19 01:00] VITALS: BP 137/62; PULSE 77; RESP 18; TEMP 98.9; O2SAT 95
[2024-08-19 05:00] VITALS: BP 144/59; PULSE 70; RESP 18; TEMP 98.2; O2SAT 95
[2024-08-19 09:00] VITALS: BP 149/66; PULSE 68; RESP 16; TEMP 97.7; O2SAT 93
[2024-08-19 13:00] VITALS: BP 138/58; PULSE 66; RESP 20; TEMP 98.2; O2SAT 92
--- NOTE | 2024-08-19 14:38 | DVHDS2 ---
Discharge Summary Date of Admission Aug 15, 2024 at 18:30 Date of Discharge: Aug 19, 2024 Labs/Diagnostic Data: Laboratory Results Test 08/19/24 11:05 08/18/24 05:19 08/17/24 05:07 08/16/24 11:12 POC Glucose 254 mg/dl (70-106) White Blood Count 8.6 10^3/uL (4.4-10.8) Red Blood Count 4.95 10^6/uL (4.0-5.20) Hemoglobin 13.1 g/dL (12.2-16.2) Hematocrit 40.6 % (36.0-46.0) Mean Corpuscular Volume 81.9 fL (80.0-100.0) Mean Corpuscular Hemoglobin 26.5 pg (28.0-32.0) Mean Corpuscular Hemoglobin Concent 32.4 g/dL (32.0-36.0) Red Cell Distribution Width 15.0 % (11.8-14.3) Platelet Count 256 10^3/uL (140-450) Mean Platelet Volume 9.6 fL (6.9-10.8) Neutrophils (%) (Auto) 64.7 % (37.0-80.0) Lymphocytes (%) (Auto) 23.4 % (10.0-50.0) Monocytes (%) (Auto) 9.2 % (0.0-12.0) Eosinophils (%) (Auto) 2.0 % (0.0-7.0) Basophils (%) (Auto) 0.7 % (0.0-2.0) Neutrophils # (Auto) 5.5 10 ^3/uL (1.6-8.6) Lymphocytes # (Auto) 2.0 10 ^3/uL (0.4-5.4) Monocytes # (Auto) 0.8 10 ^3/uL (0-1.3) Eosinophils # (Auto) 0.2 10 ^3/uL (0-0.8) Basophils # (Auto) 0.1 10 ^3/uL (0-0.2) Nucleated Red Blood Cells 0.1 % Sodium Level 134 mmol/L (136-145) Potassium Level 4.5 mmol/L (3.5-5.1) Chloride Level 98 mmol/L (98-107) Carbon Dioxide Level 29 mmol/L (20-31) Anion Gap 7 (5-15) Blood Urea Nitrogen 22 mg/dL (9-23) Creatinine 0.88 mg/dL (0.550-1.02) Glomerular Filtration Rate Calc 66 mL/min (>90) BUN/Creatinine Ratio 25.0 (10.0-20.0) Serum Glucose 248 mg/dL (74-106) Calcium Level 10.0 mg/dL (8.7-10.4) Total Bilirubin 0.4 mg/dL (0.2-1.0) Aspartate Amino Transferase (AST) 17 U/L (13-40) Alanine Aminotransferase (ALT) 17 U/L (7-40) Alkaline Phosphatase 90 U/L (46-116) Total Protein 5.9 g/dL (5.7-8.2) Albumin 3.4 g/dL (3.2-4.8) Thyroid Stimulating Hormone (TSH) 2.57 uIU/mL (0.55-4.78) Lactic Acid Level 0.9 mmol/L (0.4-2.0) Test 08/15/24 11:20 08/15/24 10:50 Urine Color Yellow (Yellow) Urine Clarity Turbid (Clear) Urine pH 6.0 (5.0-9.0) Urine Specific [place] 1.028 (1.001-1.035) Urine Protein 1+ (Negative) Urine Ketones 1+ (Negative) Urine Blood Negative /uL (Negative) Urine Nitrite Negative (Negative) Urine Bilirubin Negative (Negative) Urine Urobilinogen 2 mg/dL (Negative) Urine Leukocyte Esterase 3+ /uL (Negative) Urine RBC 23 /hpf (0 - 4) Urine Microscopic WBC 296 /HPF (0-5) Urine Squamous Epithelial Cells Few /hpf (<5) Urine Bacteria Few /hpf (None Seen) Urine Mucus Few (None Seen) Urine Yeast (Budding) Occasional /hpf (None Urine Glucose 4+ mg/dL (Normal) Troponin I High Sensitivity 11 ng/L (</=34) Plasma/Serum Blood Alcohol < 3.0 mg/dL (<10) Other Laboratory Tests 08/18/24 05:19 Brief Hx & Hospital Course: see dictated note Condition at Discharge: Fair Final Diagnosis/Problems List uti Discharge Disposition: [facility] Discharge Instruct/Medications Diet: Consistent carbohydrate, Cardiac 2g Na,low cholest Activity: No Restrictions, As Tolerated Follow Up/Referral: fu with pcp in 1 wk Medications: per aug Discharge Statement: "Patient was advised to return to the ER or call 911 if any headaches, dizziness, shortness of breath, chest pain, abdominal pain, bleeding, fevers, or worsening of medical condition. Patient was counseled about treatment plan, medications, possible side effects, patientverbalized understanding. All questions were answered to the best of my ability. This discharge took greater then 30 minutes in planning, reviewing documentation, counseling the patient, and discussing with other team members." ASSESSMENT ASSESSMENT Assessment uti Date of Service: Aug 19, 2024 Billing Provider: CLARE LEMON MD Common Visit Codes: [id number] DISCH DAY >30min CLARE LEMON MD Aug 19, 2024 14:38
--- NOTE | 2024-08-19 15:13 | DVHDS ---
DATE OF DISCHARGE: 08/19/2024 HISTORY OF PRESENT ILLNESS: The patient is an 79-year-old lady who was admitted with altered mental status and has history of COPD, diabetes, hypertension, congestive heart failure, and is primarily bedbound. HOSPITAL COURSE: The patient had sepsis with elevated white count of 17,000 as well as urinary tract infection. Her blood cultures and urine cultures have so far been negative. The patient had a CT of the head that showed no acute findings. Chest x-ray was unremarkable. The patient will now be discharged to [place] with medications as per medication reconciliation. Her white count has returned to normal and her mental status is improved. FINAL DIAGNOSES: Therefore, * Sepsis with urinary tract infection. * Diabetes mellitus. * Hypertension. * Coronary artery disease with previous stent. * Chronic systolic/diastolic heart failure. * Likely dementia. * History of cerebrovascular accident. * Obesity. * Functional quadriplegia. * Acute respiratory failure. * Encephalopathy, metabolic. I have also talked to her daughter about the plan of care. Time spent in discharge planning was 39 minutes. MD DAMI Soria/ARLINE TID: [id number] RECEIPT: [id number]
[2024-08-19 15:55] VITALS: BP 134/65; PULSE 63
[2024-08-19 17:00] VITALS: BP 141/75; PULSE 68; RESP 16; TEMP 98.9; O2SAT 95
== END 2024-08-19 18:19 | DRG 871 ==
LOC: EDBD 09:27 → ER 09:27 → OVERFLOW 18:30 → WEST WING 21:12
PROVIDERS: ADMIT Internal Medicine; ATTEND Internal Medicine
DX: A41.9 Sepsis, unspecified organism (principal); G93.41 Metabolic encephalopathy; R53.2 Functional quadriplegia; J96.00 Acute respiratory failure, unspecified whether with hypoxia or hypercapnia; N39.0 Urinary tract infection, site not specified; I50.42 Chronic combined systolic (congestive) and diastolic (congestive) heart failure; I25.10 Atherosclerotic heart disease of native coronary artery without angina pectoris; I11.0 Hypertensive heart disease with heart failure; E66.9 Obesity, unspecified; E11.9 Type 2 diabetes mellitus without complications; F03.90 Unspecified dementia, unspecified severity, without behavioral disturbance, psychotic disturbance, mood disturbance, and anxiety; J44.9 Chronic obstructive pulmonary disease, unspecified; Z90.49 Acquired absence of other specified parts of digestive tract; Z88.6 Allergy status to analgesic agent; Z90.710 Acquired absence of both cervix and uterus; Z86.73 Personal history of transient ischemic attack (TIA), and cerebral infarction without residual deficits; Z95.5 Presence of coronary angioplasty implant and graft; Z74.01 Bed confinement status
CPT/HCPCS: 36415; 70450; 71045; 80048; 80053; 80320; 81001; 82962; 83605; 84443; 84484; 85025; 87040; 87081; 87086; 93005; 96365; 96375; 97110; 97163; 97530; 99291; G0378; J1815; J2405; J3490